=== PATIENT | female | born 1965 | race Caucasian/White ===

== ENCOUNTER 2025-02-18 12:12 | Observation (INO) | payer OTHER, SELFPAY ==
[2025-02-18] VITALS (28 sets, daily range): BP systolic 96–128; BP diastolic 64–91; PULSE 67–176; RESP 13–27; TEMP 36.4–36.6; O2SAT 98–100; BMI 25.7
--- NOTE | ~2025-02-18 | XR_ITS ---
EXAMINATION: XR chest 1V portable 02/18/2025 12:52 INDICATION: Atrial fibrillation PROCEDURE: AP portable chest COMPARISON: No prior studies for comparison. FINDINGS: The lungs are clear. The cardiomediastinal silhouette is within normal limits. There are no pleural effusions. There is no pneumothorax suspected. IMPRESSION: 1: NO ACUTE CARDIOPULMONARY DISEASE. Reviewed, dictated and finalized at location A.
--- NOTE | 2025-02-18 12:17 | ECG_ITS ---
Test Date: 2025-02-18 12:20:11 Measurements Intervals [place] Rate: 163 P: 0 VA: 0 QRS: -50 QRSD: 97 T: 115 QT: 272 QTc: 449 Interpretive Statements ATRIAL FIBRILLATION WITH RAPID VENTRICULAR RESPONSE INTRAVENTRICULAR CONDUCTION DELAY CANNOT RULE OUT PREVIOUS INFERIOR INFARCTION ABNORMAL ECG No previous ECG available for comparison Electronically Signed On 02-19-2025 08:03:03 CDT by Case Cintron M.D.
[2025-02-18] MEDS: LACTATED RINGERS 1,000 ML 999 ML IV CONT (12:32)
[2025-02-18] MEDS: dilTIAZem 100 MG/100 ML 100 MG/100 ML BAG IV CONT (12:32)
[2025-02-18 12:33] LABS: Hematocrit 39.5 % (37.0-47.0); Hemoglobin 12.7 g/dL (12.0-15.0); Immature Granulocyte Percent A 0.3 % (0-0.5); Lymphocytes Absolute Auto 1.31 K/mm3 (0.9-3.2); Mean Corpuscular HGB Conc 32.2 g/dl (32-36); Mean Corpuscular Hemoglobin 27.3 pg (26-34); Mean Corpuscular Volume 84.9 fl (80-100); Nucleated Red Blood Cells Absolute Auto 0.000 K/mm3 (0.0-0.012); Nucleated Red Blood Cells Perc 0.0 % (0.0-0.2); Platelet Count Result 175 k/mm3 (150-375); Red Blood Count 4.65 M/mm3 (4.2-5.4); White Blood Count 6.9 K/mm3 (4.5-10.0)
--- NOTE | 2025-02-18 12:34 | ED.ARRPALP ---
HPI - Arrhythmia/Palpitations General Chief Complaint: Arrhythmia/Palpitations Stated Complaint: DIZZY Time Seen by Provider: 02/18/25 12:23 History of Present Illness HPI narrative: 59-year-old female with history of paroxysmal AFib on Xarelto. Patient also has history of type 2 diabetes, factor 5 Leiden disease with frequent DVTs. Patient states her last episode of AFib was December 2023. Patient was cardioverted at that time. Patient does not take Cardizem or metoprolol. Patient states that approximately 10 30 today she had onset of rapid heart rate. Patient denies any associated chest pain with this. Related Data Home Medications ?Medication ?Instructions ?Recorded ?Confirmed ?Last Taken ?Type Bacillus coagulans 250 million 1 tablet PO ONCE 02/18/25 02/18/25 02/17/25 History cell chewable tablet (Digestive Advantage Probiotic Gummy) Bacillus coagulans-inulin 1 1 cap PO DAILY 02/18/25 02/18/25 02/17/25 History billion cell-250 mg capsule (Probiotic with Prebiotic) celecoxib 200 mg capsule 200 mg PO Q12H 02/18/25 02/18/25 02/17/25 History cholecalciferol (vitamin D3) 75 3,000 unit PO DAILY 02/18/25 02/18/25 02/17/25 History mcg (3,000 unit) tablet estradiol 0.025 mg/24 hr weekly 1 patch transdermal WEEKLY 02/18/25 02/18/25 02/05/25 History transdermal patch ezetimibe 10 mg-simvastatin 40 mg 1 tablet PO QPM 02/18/25 02/18/25 02/17/25 History tablet ferrous sulfate 325 mg (65 mg 325 mg PO DAILY 02/18/25 02/18/25 02/18/25 History iron) tablet (Feosol) fluconazole 150 mg tablet 150 mg PO PRN 02/18/25 02/18/25 Unknown History insulin glargine 100 unit/mL (3 17 unit subcut QPM 02/18/25 02/18/25 02/17/25 History mL) subcutaneous pen (Lantus Solostar U-100 Insulin) insulin lispro-aabc 100 unit/mL 1 sliding scale dose subcut .with 02/18/25 02/18/25 02/18/25 History subcutaneous pen (Lyumjev KwikPen meals U-100 Insulin) metformin 500 mg tablet 1,000 mg PO BID 02/18/25 02/18/25 02/18/25 History multivitamin with minerals 1 tablet PO DAILY 02/18/25 02/18/25 02/17/25 History (Hair,Skin and Nails tablet) omega 4-cfg-jew-fish oil 1,000 mg 1 cap PO BID 02/18/25 02/18/25 02/18/25 History (120 mg-180 mg) capsule (Fish Oil) progesterone micronized 100 mg 100 mg PO QPM 02/18/25 02/18/25 02/17/25 History capsule (Prometrium) rivaroxaban 20 mg tablet (Xarelto) 20 mg PO Q24H 02/18/25 02/18/25 02/17/25 History tirzepatide 12.5 mg/0.5 mL 12.5 mg subcut WEEKLY 02/18/25 02/18/25 02/05/25 History subcutaneous pen injector (Mounjaro) zolpidem 10 mg tablet 10 mg PO QHS 02/18/25 02/18/25 02/17/25 History Allergies Allergy/AdvReac Type Severity Reaction Status Date / Time No Known Allergies Allergy Verified 02/18/25 15:18 Review of Systems Review of Systems: All systems reviewed & are unremarkable except as noted in HPI and below PMFSH Past Medical History Medical History Diabetes DVT (deep vein thrombosis) in Factor 5 Leiden mutation, heterozygous Paroxysmal A-fib Family History Family History (Updated 02/18/25 @ 15:29 by Leisa Hooker RN) Mother COPD (chronic obstructive pulmonary disease) Father Obesity Social History Social History Smoking status: Never smoker Second hand tobacco smoke exposure: No Alcohol intake: never Substance use: never Do You Feel Safe in your Home?: Yes Lack of Transportation: No Lack of Food: Never True Current Housing: I Have Housing Concerned About Future Housing: No Difficulty Paying Gas/Electric Bills: No Difficulty Paying for Meds: No Currently Unemployed: No Education: Associate Degree Difficulty w/ Childcare or Family Care: No Spiritual care concerns: No Exam Narrative: APPEARANCE: Well appearing, no pain, no distress, well-nourished. HEAD: normocephalic, atraumatic. EYES: PERRLA/EOMI, conjunctivae clear. NOSE: Normal no drainage EARS:TMS clear with good light reflex. THROAT: Pharynx clear, no exudate. NECK: Supple. No adenopathy, no masses. RESPIRATORY: Airway patent, respirations nonlabored. Clear to auscultation bilaterally, no rales, rhonchi, wheezing. CARDIOVASCULAR: AFib with RVR ABDOMINAL: Soft, nontender, nondistended, normal bowel sounds MUSCULOSKELETAL: Moves all extremities. Strength/ROM intact, No edema, No calf tenderness. NEURO: Alert. Cranial nerves II through XII intact. Grossly intact SKIN: Warm, dry. Normal Color Course Vital Signs Vital signs: Vital Signs Temperature 97.6 F 02/18/25 12:07 Pulse Rate 175 H 02/18/25 12:07 Respiratory Rate 16 02/18/25 12:07 Blood Pressure 118/75 02/18/25 12:07 Pulse Oximetry 100 02/18/25 12:07 Temperature 97.9 F 02/18/25 16:00 Pulse Rate 79 02/18/25 18:00 Respiratory Rate 20 02/18/25 16:00 Blood Pressure 112/72 02/18/25 16:00 Pulse Oximetry 98 02/18/25 16:00 Oxygen Delivery Room Air 02/18/25 16:00 MDM - Arrhythmia/Palpitations MDM Narrative Medical decision making narrative: 59-year-old female present to the emergency department for evaluation for AFib with RVR. Patient is currently afebrile with no leukocytosis hemoglobin of 12.7. INR is 1.1. Patient has no significant acute abnormalities on her CMP but patient does have a low magnesium of 1.4. Patient's troponin is not elevated. Patient's proBNP was elevated at 354. Patient was started on initial Cardizem bolus of 10 mg and a 2nd bolus of 15 mg. Patient was also started on a Cardizem infusion. Patient's magnesium was low and this was treated with a infusion of 2 g magnesium. Case was discussed with hospitalist patient was accepted for admission to IMU. Differential Diagnosis Differential diagnosis: Likely palpitations, artial fibrillation, artial flutter and WPW Lab Data Attestation: I reviewed the patient's lab results. 02/18/25 12:27 02/18/25 12:27 Labs: Lab Results 02/18/25 Range/Units 12:27 WBC 6.9 (4.5-10.0) K/mm3 RBC 4.65 (4.2-5.4) M/mm3 Hgb 12.7 (12.0-15.0) g/dL Hct 39.5 (37.0-47.0) % MCV 84.9 (80-100) fl MCH 27.3 (26-34) pg MCHC 32.2 (32-36) g/dl RDW 13.1 (11.5-14.5) % Plt Count 175 (150-375) k/mm3 MPV 10.2 (7.4-10.4) fl Immature Gran % (Auto) 0.3 (0-0.5) % Neut % (Auto) 70.8 (45.5-73.1) % Lymph % (Auto) 19.1 (18.3-44.2) % [place] % (Auto) 7.2 (2.6-8.5) % Eos % (Auto) 2.0 (0-4.4) % Baso % (Auto) 0.6 (0.2-1.2) % Lymph # (Auto) 1.31 (0.9-3.2) K/mm3 [place] # (Auto) 0.5 (0.1-0.6) K/mm3 Eos # (Auto) 0.1 (0-0.3) K/mm3 Baso # (Auto) 0.0 (0.0-0.1) K/mm3 Abs Immat Gran (auto) 0.02 (0.00-0.031) K/mm3 Absolute Neuts (auto) 4.9 (1.3-6.7) K/mm3 Absolute Nucleated RBC 0.000 (0.0-0.012) K/mm3 Nucleated RBC % 0.0 (0.0-0.2) % PT 14.0 (11.1-14.7) Seconds INR 1.1 APTT 26.8 (22.3-36.8) Seconds Sodium 137 (137-145) mmol/L Potassium 3.5 (3.4-5.0) mmol/L Chloride 102 (98-107) mmol/L Carbon Dioxide 23 (22-30) mmol/L Anion Gap 12 (4-12) mmol/L BUN 10 (7-17) mg/dL Creatinine 0.42 L (0.7-1.0) mg/dL Estim Creat Clear Calc 113 ml/min Estimated GFR > 60 (59 - ) Glucose 219 H (65-110) mg/dL Calcium 9.3 (8.4-10.2) mg/dL Magnesium 1.4 L (1.6-2.3) mg/dL Total Bilirubin 0.9 (0.2-1.3) mg/dL AST 26 (14-36) U/L ALT 16 (6-35) U/L Alkaline Phosphatase 72 (38-126) U/L Troponin I < 0.012 (0.000-0.034) ng/mL NT-Pro-B Natriuret Pep 354 H (19.9-100) pg/mL Total Protein 6.9 (6.3-8.2) g/dL Albumin 4.2 (3.5-5.1) g/dL TSH (Reflex) 0.266 L (0.465-4.68) uIU/mL Free T4 1.79 (0.78-2.19) ng/dL Total T3 0.90 (0.82-1.58) NG/ML Imaging Data Radiologist's impression: Impressions Chest X-Ray 02/18/25 12:57 IMPRESSION: 1: NO ACUTE CARDIOPULMONARY DISEASE. ECG Data EKG #1: EKG Interpretation: tachycardia, atrial fibrillation, non-specific ST changes, normal QRS, normal QT and NL axis Discharge Plan Discharge Clinical Impression: Atrial fibrillation with rapid ventricular response, Hypomagnesemia Patient Disposition: Still a Patient Condition: Serious
--- OUTSIDE RECORDS SUMMARY | 2025-02-18 12:46 | XMS_ITS ---
Author Organization [facility] Billing Info Address [address] [place] [address] Care Team Providers Care Produce Sorter Name Role Phone [place] LEMUS Primary Care Provider Unavailab JESSY Al Unavailable [phone] REASON FOR VISIT Annual Follow Up Encounters Encounter Location Date Provider Diagnosis [id number] [address] [place], [place] [id number] 02/07/2025 JESSY PENALOZA Coronary artery disease involving [place] coronary artery of [place] heart, unspecified whether angina present I25.10 Assessments Encounter Date Diagnosis (ICD Code) Assessment Notes Treatment Notes Treatment Clinical Notes Section Notes 02/07/2025 Coronary artery disease involving [place] coronary artery of [place] heart, unspecified whether angina present (ICD-10 - I25.10) 02/07/2025 Other [facility] : Care Instructions material was published Plan Of Treatment Treatment Notes Assessment Notes Other [facility]: Car e Instructions material was published Next Appt Details Provider Name:KY WANG, 02/21/2025 01:30:00 PM, [address], [place], [phone], Provider Name:JESSY PENALOZA, 03/20/2025 08:15:00 AM, [address], [address], [place], [place], [phone], Progress Notes * Carolynn CHAVEZ LDOB:1965 (59 yo F)Acc No.[id number]:02/07/2025 PROGRESS NOTE Patient: Carolynn SCHOFIELD Provider: Tesha PENALOZA MD :1965 A ge:59 Y S ex:Female Date:02/07/2025 Pearl AGUILAR#:[id number] Address:[address] [place] [address] ELIEL BROWNLEE, [phone] Pcp:KY LEMUS Subjective: * Chief Complaints: * 1 . Annual Follow Up. * HPI: F irst Point of Contact Screening: Do any of the following apply to you? N ew rash or open sores N o, F ever and/or chills in the past 7 days N o, C ough N o, M uscle or body aches (other than from an injury) N o, S ore throat N o, I n the past 3 weeks, have you or a close contact traveled outside the [facility] and you are now ill? N o, O FFICE USE (If universal masking is not in place, provide patients age 2 years and older with a facemask to wear over their mouth and nose while in the practice.): P atient answered no to all questions OR only answered yes to question 1, N o further action needed 0 02/07/2025. * Medical History: Objective: * Vitals: Assessment: * Assessment: 1. C oronary artery disease involving [place] coronary artery of [place] heart, unspecified whether angina present - I25.10 (Primary) Plan: * Treatment: * Care Plan Details* * This progress note has not b een verified nor is it considered complete until locked and signed by the provider. Sign off status: Pending * Provider: Tesha PENALOZA MD Date: 0 02/07/2025 Generated for Afua banegas/Robbie/Gómezitting on: 0 02/18/2025 12:46 PM CDT History and Physical Notes * HPI (History of Present Illness) Category Sub-Category Detail Notes Category Not es First Point of Contact Screening Do any of the following apply to you? New rash or open sores: No Fever and/or chills in the past 7 days: No Cough: No Muscle or body aches (other than from an injury): No Sore throat: No In the past 3 weeks, have yo u or a close contact traveled outside the [place] and you are now ill? : No OFFICE USE (If universal mas radha is not in place, provide patients age 2 years and older with a facemask to wear over their mouth and nose while in the practice.):: Patient answered no to all questions OR only answered yes to question 1 No further action needed : 02/07/2025
--- OUTSIDE RECORDS SUMMARY | 2025-02-18 12:47 | XMS_ITS ---
Author Organization [facility] Address [address] [address] Care Team Providers Care Munitions Worker Name Role Phone Cayetano Ramesh Primary Care Provider [phone] REASON FOR VISIT PA Ambien 10 mg-*No PA reqd* Medications Medication SIG (Take, Route, Fr equency, Duration) Notes Start Date End Date Status Zolpidem Tartrate 10 MG 1/2 to 1 tablet at bedtime as needed Orally Once a day for 90 days 08/31/2024 Active Encounters Encounter Location Date Provider Diagnosis [facility] [address] [place] [phone] 08/29/2024 Cayetano Ramesh Plan Of Treatment Medication Medication Name Sig Start Date Stop Date Notes Zolpidem Tartrate 10 MG 1/2 to 1 tablet at bedtime as needed Orally Once a day for 90 days 08/31/2024 Next Appt Details Provider Name:Cayetano Ryder off, 02/21/2025 01:30:00 PM, [address] [place] [address], [phone], Progress Notes * Carolynn CHAVEZ LDOB:1965 (59 yo F)Acc No.[id number]:08/29/2024 Patient: Carolynn SCHOFIELD :1965 A ge:59 Y S ex:Female Address:[address] [place] [address], [phone] * Refills Start Zolpidem Tartrate Tablet, 10 MG, Orally, 90, 1/2 to 1 tablet at bedtime as needed, Once a day, 90 days, Refills=1 Subjective: * Chief Complaints: * P A Ambien 10 mg-*No PA reqd* * Medical History: * Surgical History: * Hospitalization/Major Diagno stic Procedure: * Medications: Objective: * Vitals: * Physical Examination: Assessment: Plan: * Treatment: * Procedure Codes: * true * Date: Generated for Afua banegas/Robbie/Hanane on: 0 02/18/2025 12:46 PM CDT
--- OUTSIDE RECORDS SUMMARY | 2025-02-18 12:47 | XMS_ITS ---
Author Organization [facility] Billing Info Address [address] [place] [address] Care Team Providers Care Product Development Actuary Name Role Phone [place] LEMUS Primary Care Provider Unavailab JESSY Al [phone] REASON FOR VISIT Cardiology Chart Prep Encounters Encounter Location Date Provider Diagnosis [id number] [address] [address] [place], [place] [phone] 01/19/2025 JESSY PENALOZA Plan Of Treatment Next Appt Details Provider Name:KY WANG, 02/21/2025 01:30:00 PM, [address] [place], [phone], Provider Name:JESSY PENALOZA, 03/20/2025 08:15:00 AM, [address] [address], [place], [place], [phone], Progress Notes * Carolynn CHAVEZ LDOB:1965 (59 yo F)Acc No.[id number]:01/19/2025 Patient: Carolynn SCHOFIELD :1965 A ge:59 Y S ex:Female Address:[address] [place] [phone] * true * Date: Generated for Printi ng/Faxing/eTransmitting on: 0 02/18/2025 12:47 PM CDT
--- OUTSIDE RECORDS SUMMARY | 2025-02-18 12:47 | XMS_ITS ---
Author Organization [facility] Address [address] [address] Care Team Providers Care Licensed Customs Broker Name Role Phone Cayetano Ramesh Primary Care Provider REASON FOR VISIT RE:New Refill Request Encounters Encounter Location Date Provider Diagnosis [facility] [address] [place] [phone] 08/28/2024 Cayetano Ramesh Plan Of Treatment Next Appt Details Provider Name:Cayetano Ryder off, 02/21/2025 01:30:00 PM, [address] [place] [address], [phone], Progress Notes * Carolynn CHAVEZ LDOB:1965 (59 yo F)Acc No.[id number]:08/28/2024 Patient: Carolynn SCHOFIELD :1965 A ge:59 Y S ex:Female Address:[address] [place] [address], [phone] * true * Date: Generated for Printi ng/Faxing/eTransmitting on: 0 02/18/2025 12:46 PM CDT
--- OUTSIDE RECORDS SUMMARY | 2025-02-18 12:48 | XMS_ITS | Patient Health Record ---
Author Organization [facility] Billing Info Address [address] [place] [address] Care Team Providers Care Heat Treat Operator Name Role Phone [place] LEMUS Primary Care Provider Unavailab [place] Wong Unavailable [phone] JESSY STEELE Unavailable [phone] TATUM ACOSTA Unavailable [phone] Migration, Provider Unavailable Unavailable Allergies No Known Allergies Results Component Value Reference Range Notes EKG (96989) (MidMark-MMIQECG ) IH Reviewed date:05/05/2024 10:22:59 PM Interpretation: Performing Lab: Notes/Report: Heart Rate 74 Systolic Blood Pressure 0 Diastolic Blood Pressure 0 TX Interval 160 QT Interval 422 QTc Interval 0 QRS Duration 104 PWave [place] 57 QrsWave [place] -41 TWave [place] 90 Mean Heart Rate 0 Diastolic Blood Pressure 0 Systolic Blood Pressure 0 MeanRR Interval 0 MinRR Interval 0 MaxRR Interval 0 NumBeats 0 Reason For Referral No Information Medications Medication SIG (Take, Route, Frequency, Duration) Notes Start Date End Date Status Climara 0.025 MG/24HR 1 patch to skin Transdermal weekly for 90 days 04/25/2016 Active Lyumjev KwikPen 100 UNIT/ML as directed Subcutaneous 1 Unit per 4 G Carbs Sliding Active Celebrex 200 MG 1 capsule Orally Onc e a day for 90 days 04/26/2012 Active Lantus SoloStar 100 UNIT/ML 22 units Subcutaneous every qhs 17 units at night Active Prometrium 100 MG 1 capsule Orally Onc e a day for 90 days 03/27/2016 Active Probiotic OTC as directed Orally a s directed for 90 days *Pick strength-form from Talkito for eRX* Active Ambien 10 MG 1 tab Orally qHS for 90 days 08/15/2024 Active Vascepa 1 GM 2 capsules with meal s Orally Twice a day for 90 days 01/05/2024 Active Mounjaro 15 mg wkly *Pick strength-form from Talkito for eRX* Active Metformin HCl 500 MG 2 tablets with meal s Orally Twice a day for 30 day(s) Active Vytorin 10-40 MG 1 tablet Orally Once a day for 90 days 04/02/2012 Active Medical Compression Stockings 30-40 knee high as directed 10/17/2015 Active Xarelto 20 MG 1 tablet WITH FOOD Orally Once a day for 90 days 05/13/2024 Active Iron 325 (65 Fe) MG 1 tablet Orally Once a day Active Vitamin D3 2000 UNIT as directed Orally as directed for 90 days *Pick strength-form from [employer]ito for eRX* Active Immunizations Vaccine Route Administration Date Status Comme nts FLU (Past vaccine of unknown type) Unknown 05/31/2010 Administered Immunization Given by from source eCW:: FLU (Past vaccine of unknown type) Unknown 07/01/2011 Administered Immunization Given by from source eCW:: PNEUMOCOCCAL - 23 POLY (PNEUMOVAX 23) IM Intramuscular 04/20/2018 Pending Immunization Given by from source eCW:: PNEUMOCOCCAL 13 CONJ (XOGVEIT22) IM Intramuscular 06/13/2020 Administered TD Toxoids (7 yrs +), adsorbed (TDVAX) IM Intramuscular 01/14/2022 Administered TDAP (ADACEL) Unknown 11/03/2006 Administered Immunizat ion Given by from source eCW:: zCOVID-19 (Pfizer-BioNTech Purple Cap Comirnaty) 12+yrs, NO PRES Unknown 10/31/2020 Administered Immunization Given by from source eCW:: zCOVID-19 (MakerBotNTech Purple Cap Comirnaty) 12+yrs, NO PRES Unknown 11/28/2020 Administered Immunization Given by from source eCW:: zCOVID-19 ([employer]-CRAZEech Purple Cap Comirnaty) 12+yrs, NO PRES Unknown 08/11/2021 Administered Immunization Given by from source eCW:: zFLU 4V (FLUARIX QUAD), 6 MO+, NO PRES - ALL PAYORS IM Intramuscular 05/05/2023 Administered ZOSTER (SHINGRIX) IM Intramuscular 01/14/2022 Administered ZOSTER (SHINGRIX) IM Intramuscular 07/07/2023 Administered Dilutent Lot #: [id number] Exp Date: 07/08/25 Social History Tobacco Use: Social History Observation Description Date Details (start date - stop date) Never Smoker NA - NA Tobacco Status: Question Answer Notes Patient is a never smoker Problems Problem Type SNOMED Code ICD Code Onset Dates Problem Status W/U Status Risk Notes Problem 106358832 Activated 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) Active confirmed Problem 26583933 Type 2 diabetes mellitus with hyperglycemia (E11.65) Active confirmed Problem 408207875 Other obesity (E66.8) Active confirme d Problem Long-term current use of anticoagulant (345020799) senior care (current) use of anticoagulants (Z79.01) Active confirmed Problem 671363340 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) Active confirmed Problem 371314686 Low back pain (M54.5) Active confirme d Problem 199025365 Hx of deep venou s thrombosis (Z86.718) Active confirmed Problem 01262050 PVCs (premature ventricular contractions) (I49.3) Active confirmed Problem 38418208 DARY (obstructive sleep apnea) (G47.33) Active confirmed Problem 98351012 Cardiac murmur (R01.1) Active confirme d Problem 97585363 Sacroiliitis (M46.1) Active confirmed Problem 50608284 Menopausal sympt oms (N95.1) Active confirmed Problem 293099453 Abnormal ECG (R94.31) Active confirme d Problem 254086544828055 Impingement synd parmjit of right shoulder (M75.41) Active confirmed Problem 42132318 Aortic valve scl erosis (I35.8) Active confirmed Problem 173124690 Chronic insomnia (F51.04) Active confirmed Problem 82075843 Spondylosis of l umbar region without myelopathy or radiculopathy (M47.816) Active confirmed Problem 574933318 senior care curren t use of anticoagulant (Z79.01) Active confirmed Problem 071811200 Factor V Leiden mutation (D68.51) Active confirmed Problem 02654653 Primary hypercoagulable state (D68.59) Active confirmed Problem 25613403 Atrial fibrillat ion, unspecified type (I48.91) Active confirmed Problem 108693873 Syncope, unspeci fied syncope type (R55) Active confirmed Problem 91686129 Coronary artery disease involving northway heart without angina pectoris, unspecified vessel or lesion type (I25.10) Active confirmed Problem 534964660 Nonrheumatic aor tic valve stenosis (I35.0) Active confirmed Problem 883364648 Osteoarthritis o f patellofemoral joints, 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) Active confirmed Problem 808716780 Pure hypercholesterolemia (E78.00) Active confirmed Problem 390987456 Pure hypercholesterolemia, unspecified (E78.00) Active confirmed Problem 512620551 S/P rotator cuff repair (Z98.890) Active confirmed Problem 65530219114357 LAE (left atrial enlargement) (I51.7) Active confirmed Problem 546293576 Coronary artery disease involving northway coronary artery of northway heart, unspecified whether angina present (I25.10) Active confirmed Vital Signs Heart Rate 72 /min 08/30/2024 Waist 38 inches on 08/30/24 Respiratory Rate 16 /min 08/30/2024 Waist 38 in ches on 08/30/24 Oximetry 98 08/30/2024 Waist 38 inches on 08/30/24 Blood pressure diastolic 64 mm Hg 08/30/[address] 38 inches on 08/30/24 Height 67 in 08/30/2024 Waist 38 inches on 08/30/24 Blood pressure systolic 110 mm Hg 08/30/2024 Wais t 38 inches on 08/30/24 Weight 168.2 lbs 08/30/2024 Waist 38 inches on 08/30/24 BMI 26.34 kg/m2 08/30/2024 Waist 38 inches on 08/30/24 Encounters Encounter Location Date Provider Diagnosis [id number] [address] [place] [address] 05/02/2024 TATUM ACOSTA [id number] [facility] [address] [place], [place] [id number] 05/25/2024 JESSY STEELE [id number] [place] [address] [place] [address] 08/15/2024 [place] LEMUS Chronic insomnia F51 .04 [id number] [place] [address] [address] 02/24/2024 [place] LEMUS [id number] [place] [facility] [address] [facility] [address] 08/28/2024 [place] LEMUS [id number] [place] [address] [facility] [address] 02/26/2024 [place] LEMUS [id number] [place] [facility] [address] [facility] [address] 08/29/2024 KY LEMUS [id number] [place] [facility] [address] [place] [address] 02/22/2024 [place] LEMUS [id number] [place] [address] [address] 02/26/2024 [place] LEMUS [id number] [facility] [address] [place] [address] 2024 Provider Migration 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 Z79.01 [id number] [facility] [address] [address] [place], [place] [id number] 01/19/2025 JESSY YANG [id number] [facility] [id number] [place] [address] 05/04/2024 Provider Migration 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 Z79.01 ; History of DVT of lower extremity Z86.718 and Factor V Leiden mutation D68.51 [id number] [facility] [address] [place] [address] 04/13/2024 Provider Migration 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 Z79.01 ; History of DVT of lower extremity Z86.718 and Factor V Leiden mutation D68.51 [id number] [facility] [address] [place] [address] 2024 Provider Migration 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 Z79.01 ; History of DVT of lower extremity Z86.718 and Factor V Leiden mutation D68.51 [id number] [address] [place] [address] 08/30/2024 KY LEMUS Chronic insomnia F51 .04 ; Encounter for general adult medical examination with abnormal findings Z00.01 ; Body mass index (BMI) of 26.0 to 26.9 in adult Z68.26 ; Dietary counseling and surveillance Z71.3 ; Atrial fibrillation, unspecified type I48.91 ; Asymptomatic varicose veins I83.90 ; Chronic anticoagulation Z79.01 and Screening mammogram for breast cancer Z12.31 [id number] [facility] [address] [place] [address] 05/04/2024 TATUM ACOSTA Paroxysmal atrial fibrillation I48.0 and Heterozygous factor V Leiden mutation D68.51 Assessments Encounter Date Diagnosis (ICD Code) Assessment Notes Treatment Notes Treatment Clinical Notes Section Notes 05/04/2024 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 Will increase her TWD to 48mg. Will continue monitoring for INR stability w/ her continued WEIGHT LOSS (she has lost 80 lbs from starting weight of 247 lbs in 09/2022). Advised patient to notify [facility] clinic if any further changes prior to next visit. We have discussed if she decides to proceed w/ the KNEE MANIPULATION procedure that it likely would not require interruption of her anticoagulation as this is typically a closed procedure without any bleeding risk, however if she decides to proceed with scheduling this then we would contact Dr. Oneil to verify this, so she v/u to notify [facility] if she schedules this procedure prior to next visit. 08/30/2024 Chronic insomnia (ICD-10 - F51.04) 08/30/2024 Encounter for general adult medical examination with abnormal findings (ICD-10 - Z00.01) 04/13/2024 senior care (current) use of anticoagulants (ICD-10 - Z79.01) Therapeutic INR result today, in mid-range & remains very stable from last several INRs on current dosing. She will continue her current therapeutic TWD 45mg. Will continue monitoring for INR stability w/ her continued WEIGHT LOSS (she has lost 80 lbs from starting weight of 247 lbs in 09/2022). Advised patient to notify [facility] clinic if any further changes prior to next visit. We have discussed if she decides to proceed w/ the KNEE MANIPULATION procedure that it likely would not require interruption of her anticoagulation as this is typically a closed procedure without any bleeding risk, however if she decides to proceed with scheduling this then we would contact Dr. Oneil to verify this, so she v/u to notify [facility] if she schedules this procedure prior to next visit. 2024 senior care (current) use of anticoagulants (ICD-10 - Z79.01) 05/04/2024 Paroxysmal atrial fibrillation (ICD-10 - I48.0) Patient had one episode of atrial fibrillation. No recurrence of arrhythmia, to her knowledge. We discussed various treatment options including watchful waiting while monitoring arrhythmia burden with an implantable loop recorder, a rate control strategy and a rhythm control strategy with either a trial of antiarrhythmic drug therapy, and/or catheter ablation. We reviewed the risks and benefits of each of these treatment strategies. At this time, she would like to hold off on pursuing any additional treatment options and continue with the pill in the pocket approach, as she is doing currently. She was advised to contact our office if she has any worrisome symptoms that occur at a greater duration or intensity. I would like to see her back in my office for a follow-up as needed. - Follow-up as needed - Continue to follow with Dr. 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 Recommend continued close monitoring for INR stability w/ her continued WEIGHT LOSS (she has lost 80 lbs from starting weight of 247 lbs in 09/2022). Discussed [facility] clinic closing 05/13/24 & transition of her anticoagulation care to PCP now. She is due for next INR in approx 2-3 weeks to assess response to this additional dosing adjustment as per above. She is to remain on long-term anticoagulation tx due to her diagnoses, and reminded her that she is on anticoagulation now for TWO different reasons as well with (1) hx recurrent DVT & hypercoag state, and (2) new onset A-fib earlier this year, so if someone is ever to advise her she could stop anticoagulation tx, this should NOT be done & BOTH of these diagnoses need to be taken into consideration. We also discussed she is a candidate for a DOAC if she would desire to change from Warfarin to a DOAC, so she will check the cost of both Eliquis & Xarelto with her insurance & notify [facility] if these are affordable to her since she has & could not use the reduced cost copay card programs. If she finds the DOACs to be affordable then she will contact [facility] prior to 05/13 closing so we can assist with prescribing & educating on the DOAC medication & safe transition process from Warfarin. It has been my pleasure providing care for Carolynn for many years in [facility]. We have discussed if she decides to proceed w/ the KNEE MANIPULATION procedure in the future that it likely would NOT require interruption of her anticoagulation as this is typically a closed procedure without any bleeding risk, however if she decides to proceed with scheduling this then Dr. Oneil should be contacted to verify this. 2024 History of DVT of lower extremity (ICD-10 - Z86.718) 05/04/2024 Heterozygous factor V Leiden mutation (ICD-10 - D68.51) She is on lifelong Warfarin anticoagulation due to her coagulopathy, with recent INR reportedly 2.5. 05/04/2024 History of DVT of lower extremity (ICD-10 - Z86.718) 04/13/2024 History of DVT of lower extremity (ICD-10 - Z86.718) 08/30/2024 Body mass index (BMI) of 26.0 to 26.9 in adult (ICD-10 - Z68.26) 05/04/2024 Factor V Leiden mutation (ICD-10 - D68.51) 08/30/2024 Dietary counseling and surveillance (ICD-10 - Z71.3) 04/13/2024 Factor V Leiden mutation (ICD-10 - D68.51) 2024 Factor V Leiden mutation (ICD-10 - D68.51) 08/30/2024 Atrial fibrillation, unspecified type (ICD-10 - I48.91) 08/30/2024 Asymptomatic varicose veins (ICD-10 - I83.90) 08/30/2024 Chronic anticoagulation (ICD-10 - Z79.01) 08/30/2024 Screening mammogram for breast cancer (ICD-10 - Z12.31) 04/13/2024 Other Consistent Vitamin K Diet: Care Instructions material was published 05/04/2024 Other On Warfarin for 05/04/2024 Other Consistent Vitamin K Diet: Care Instructions material was published 2024 Other Consistent Vitamin K Diet: Care Instructions material was published 02/07/2025 Other A Healthy Heart : Care Instructions material was published Plan Of Treatment Pending Test Test Name Order Date ECHO- ECHOCARDIOGRAM COMPLETE (36695)(OP RM-ECHOCOM) 06/02/2023 CARDIAC CCTA - CALCIUM SCORING ONLY (740 74) CV* 08/06/2021 HOLTER MONITOR - 24 HOUR (17811) CV* Future Test Test Name Order Date ECHO- ECHOCARDIOGRAM COMPLETE (23941)(OP RM-ECHOCOM) 01/02/2025 Next Appt Details Provider Name:KY WANG, 02/21/2025 01:30:00 PM, [address], [place], [address], Provider Name:JESSY STEELE, 03/20/2025 08:15:00 AM, [address], [address], [place], [place], [id number], Insurance Providers Payer Name Payer Address Payer Phone Subscriber Number Group Number Insured Name Patient Relationship to Insured Coverage Start Date Coverage End Date [facility] [address] [place], [place] [id number] Carolynn Chavez Self - patient is the insured 2 2 Medications Administered Medication Instructions Date of Administration Dosage Notes Bupivacaine HCL 0.5% (Marcaine, Sensorcaine) 03/02/2020 3 mL Triamcinolone Acetonide (Kenalog) 03/17/2017 4 mg Right shoulder Triamcinolone Acetonide (Kenalog) 11/11/2018 4 mL zKenalog 40mg 03/02/2020 1 mL Medical (General) History Medical History History ICD Code Hyperlipidemia type II diabetes Deep vein thrombosis, left leg Neuropathy associated with endocrine dis order Heterozygous factor V leiden senior care current use of anticoagulant Primary hypercoagulable state Arthritis of left knee Atrial fibrillation Surgical History Surgery Date(Month/Year) Right total knee replacement 09/28/2023 Left wrist surgery - Tendonitis 11/21/19 21 Bilateral L3/4, L4/5, L5/S1 facets joint Right Sacroiliac Joint, Left Gluteus Bursa injections performed 04/18/2020 R Rotator Cuff Repair 07/12/2018 bilateral L3/4, L4/5, L5/S1 facet, Bilateral Sacroiliac Joint, Bilateral Gluteus Bursa injections preformed 07/12/2018 lap banding 12/2006 tubal ligation 01/2002 C section 01/2001 tonsillectomy 1968 gall bladder surgery 1987 Left wrist surgery - Tendonitis 1 Bilateral L3/4, L4/5, L5/S1 facet, Bilateral Sacroiliac Joint, Bilateral Gluteus Bursa injections performed by Dr. Sood 09/21/2017 colonoscopy, [facility], Dr. Trejo, hemorr hoids, rpt 10 years 03/2016 C section 01/2001 Bilateral L3/4, L4/5, L5/S1 facets joint, Right Sacroiliac Joint, Left Gluteus Bursa injections performed by [facility] Sood [facility] 04/18/2020 gall bladder 1987 Lap band 12/2006 Right TKA 09/2023 R Rotator Cuff 07/12/2018 tubal ligation 01/2002 Hospitalization History Reason Date(Month/Year) [facility] for Afib 12/23/2023 Low blood sugar 07/27/2021 Atrial fibrillation 12/23/2023 diabetic ketoacidosis 05/2009
--- OUTSIDE RECORDS SUMMARY | 2025-02-18 12:48 | XMS_ITS | Encounter Summary ---
Author Organization [facility] Address [address] [place] [address] Care Team Providers Care Strip Machine Tender Name Role Phone Cayetano Ramesh MD Primary Care Provider Katelyn Talamantes POLITICAL ADVISOR Unavailable [phone] Source Comments Please be aware that You and/or your organization are solely responsible for the use, security, privacy, and any decisions made with any information you receive from [employer] Encounter Details Date Type Department Care Team (Late Contact Info) Description 08/19/2023 [facility] Health Information Management [address] [place] [phone] Provider, Not In System Social History Tobacco Use Types Packs/Day Years Used Date Smoking Tobacco: Never Smokeless Tobacco: Never Alcohol Use Standard Drinks/Week Comments Yes 0 (1 standard drink = 0.6 oz pur e alcohol) Rare PHQ-2 Answer Date Recorded Patient Health Questionnaire-2 Score 0 12/17/2022 Comments Unknown Sex and Gender Information Value Date Recorded Sex Assigned at Not on file Legal Sex Female 8:12 PM EST Gender Identity Not on file Sexual Orientation Not on file documented as of this encounter Plan of Treatment Upcoming Encounters Date Type Department Care Team (Late Contact Info) Description 05/09/2025 1:30 PM CDT Office Visit [facility] Endocrinology at [facility] [address] [place] [phone] Katelyn Talamantes, POLITICAL ADVISOR [address] [address] documented as of this encounter Visit Diagnoses Not on filedocumented in this encounter Care Teams Strip Machine Tender Relationship Specialty Start [place] [address] [address] PCP - General Family Medicine 11/21/22 Katelyn Talamantes APRN [address] [facility] [address] [place] [address] Nurse Practitioner Endocrinology 11/22/24 documented as of this encounter
--- OUTSIDE RECORDS SUMMARY | 2025-02-18 12:48 | XMS_ITS | Clinical Summary ---
Author Organization [facility] Address [address] [place] [address] Care Team Providers Care Sexer Name Role Phone Jose G Maldonado MD Primary Care Provider [phone] Carina Heard RN Unavailable Unavailable Shannan Sharma MD Unavailable + -[phone] Source Comments Some departments are not documenting in the electronic medical record. If you do not see the information that you expected, contact Release of Information in the Health Information Management department at [phone] for further assistance in locating additional records.[facility] Allergies No known active allergies Medications EZETIMIBE/SIMVASTATI N (VYTORIN 10-40 PO) Take by mouth. Active ESCITALOPRAM OXALATE (LEXAPRO PO) Take by mouth. Active FENOFIBRATE NANOCRYSTALLIZED (TRICOR PO) Take by mouth. Active zolpidem (AMBIEN) 10 mg tablet Take 10 mg by mouth At Bedtime as needed for Sleep. Active enoxaparin (LOVENOX) 100 mg Syrg Inject 1 mL into area(s) as directed Twice Daily. 14 0 9 Active insulin aspart (NOVOLOG) 100 unit/mL InPn Inject 20 Units into area(s) as directed Three Times Daily With Meals. 20 pens 0 9 Active metformin (GLUCOPHAGE) 500 mg tablet Take 1 Tab by mouth Twice Daily With Meals. Take 1 tablet PO BID X 1 week then increase to 2 tabs PO BID 120 0 9 Active warfarin (COUMADIN) 10 mg tablet Take 1 Tab by mouth At Bedtime Daily. 30 0 9 Active Lancets (ONE TOUCH ULTRASOFT LANCETS) Misc Use as directed. Take blood glucose 4 time daily 120 0 9 Active Insulin Glargine (LANTUS SOLOSTAR) 300 unit/3 mL InPn Inject 36 Units into area(s) as directed Twice Daily. 10 pens 0 9 Active Insulin [place], Disposable, (BD INSULIN PEN NEEDLE UF MINI) 31 x 3/16 Ndle Use as directed. 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 Deep vein thrombosis (DVT) ([facility]) Family History Medical History Relation Comments Other Father heart disease Other Mother COPD Relation Status Comments Father Mother Social History Tobacco Use Types Packs/Day Years Used Date Smoking Tobacco: Never Alcohol Use Standard Drinks/Week Comments No 0 (1 standard drink = 0.6 oz pur e alcohol) Comments No Sex and Gender Information Value Date Recorded Sex Assigned at Not on file Legal Sex Female 6:09 PM CDT Gender Identity Not on file Sexual Orientation Not on file Occupation Industry Job Start Date Job End Date Not on file Not on file Not on file Not on file Obstetrics History Last Filed Vital Signs Vital Sign Reading Time Taken Comments Blood Pressure 115/70 05/06/2009 12:29 PM CDT Pulse 92 05/06/2009 12:29 PM CDT Temperature 35.5 C (95.9 F) 05/06/2009 12:29 PM CDT Respiratory Rate - - Oxygen Saturation 99% 05/06/2009 12: 29 PM CDT Inhaled Oxygen Concentration - - Weight 105.5 kg (232 lb 9.4 oz) 05/06/2009 3:41 AM CDT Height 175.3 cm (5' 9) 05/02/2009 7:00 AM CDT Body Mass Index 34.35 05/02/2009 7:00 AM CDT Plan of Treatment Health Maintenance Due Date Last Done Comments HIV SCREENING 1979 DTAP/TDAP VACCINES (1 - Tdap) 1982 HEPATITIS C SCREENING 1982 PHYSICAL (COMPREHENSIVE) EXAM 1982 CERVICAL CANCER SCREENING 1985 BREAST CANCER SCREENING 2004 COLORECTAL CANCER SCREENING 2009 PNEUMOCOCCAL VACCINE AGE 50 AND OVER (1 of 1 - PCV) 2014 SHINGLES RECOMBINANT VACCINE (1 of 2) 2014 COVID-19 VACCINE (1 - 2023-2 5 season) 2024 DEPRESSION SCREENING 08/03/2024 INFLUENZA VACCINE (#1) 2025 RSV VACCINE (60 years and Older/ Women) (1 - 1-dose 75+ series) 2039 HPV VACCINES Aged Out No longer eligi ble based on patient's age to complete this topic MENINGOCOCCAL B VACCINE Aged Out No l onger eligible based on patient's age to complete this topic Care Teams Sexer Relationship Specialty [place] [id number] [facility] [place] [address] PCP - General 05/01/09 Carina Heard, DA 06/03/10 Shannan Sharma MD [address] [place] [address] MS [address] [place] [address] 06/03/10
--- OUTSIDE RECORDS SUMMARY | 2025-02-18 12:48 | XMS_ITS ---
Author Organization [facility] Billing Info Address [address] [place] [id number] Care Team Providers Care Waistline Joiner Name Role Phone [place] LEMUS Primary Care Provider Unavailab [place] Wong Unavailable [phone] Allergies No Known Allergies REASON FOR VISIT Physical, ambien refill Medications Medication SIG (Take, Route, Frequency, Duration) Notes Start Date End Date Status Vascepa 1 GM 2 capsules with meals Orally Twice a day 08/30/2024 Not-Taking Climara 0.025 MG/24HR 1 patch to skin Transdermal weekly for 90 days 04/25/2016 Active Lyumjev KwikPen 100 UNIT/ML as directed Subcutaneous 1 Unit per 4 G Carbs Sliding Active Mounjaro 15 mg wkly *Pick strength-form from [employer] for eRX* Active Medical Compression Stockings 30-40 knee high as directed 10/17/2015 Active Vascepa 1 GM 2 capsules with meals Orally Twice a day for 90 days 01/05/2024 Active Xarelto 20 MG 1 tablet WITH FOOD Orally Once a day for 90 days 05/13/2024 Active Iron 325 (65 Fe) MG 1 tablet Orally Once a day Active Prometrium 100 MG 1 capsule Orally Once a day for 90 days 03/27/2016 Active Vitamin D3 2000 UNIT as directed Orally as directed for 90 days *Pick strength-form from [employer] for eRX* Active Metformin HCl 500 MG 2 tablets with meals Orally Twice a day for 30 day(s) Active Celebrex 200 MG 1 capsule Orally Once a day for 90 days 04/26/2012 Active Lantus SoloStar 100 UNIT/ML 22 units Subcutaneous every qhs 17 units at night Active Probiotic OTC as directed Orally as directed for 90 days *Pick strength-form from [employer] for eRX* Active Vytorin 10-40 MG 1 tablet Orally Once a day for 90 days 04/02/2012 Active Ambien 10 MG 1 tab Orally qHS for 90 days 08/15/2024 Active Vital Signs Respiratory Rate 16 /min 08/30/2024 Height 67 in 08/30/2024 Blood pressure systolic 110 mm Hg 08/30/19 25 Blood pressure diastolic 64 mm Hg 025 Heart Rate 72 /min 08/30/2024 Weight 168.2 lbs 08/30/2024 BMI 26.34 kg/m2 08/30/2024 Oximetry 98 08/30/2024 Waist 38 inches on 08/30/24 Encounters Encounter Location Date [id number] [address] [address] 08/30/2024 [place] LEMUS Chronic insomnia F51 .04 ; Encounter for general adult medical examination with abnormal findings Z00.01 ; Body mass index (BMI) of 26.0 to 26.9 in adult Z68.26 ; Dietary counseling and surveillance Z71.3 ; Atrial fibrillation, unspecified type I48.91 ; Asymptomatic varicose veins I83.90 ; Chronic anticoagulation Z79.01 and Screening mammogram for breast cancer Z12.31 Assessments Encounter Date Diagnosis (ICD Code) Assessment Notes Treatment Notes Treatment Clinical Notes Section Notes 08/30/2024 Chronic insomnia (ICD-10 - F51.04) 08/30/2024 Encounter for general adult medical examination with abnormal findings (ICD-10 - Z00.01) 08/30/2024 Body mass index (BMI) of 26.0 to 26.9 in adult (ICD-10 - Z68.26) 08/30/2024 Dietary counseling and surveillance (ICD-10 - Z71.3) 08/30/2024 Atrial fibrillation, unspecified type (ICD-10 - I48.91) 08/30/2024 Asymptomatic varicose veins (ICD-10 - I83.90) 08/30/2024 Chronic anticoagulation (ICD-10 - Z79.01) 08/30/2024 Screening mammogram for breast cancer (ICD-10 - Z12.31) Plan Of Treatment Medication Medication Name Sig Start Date Stop Date Notes Xarelto 20 MG 1 tablet WITH FOOD O rally Once a day for 90 days 05/13/2024 Diflucan 150 MG 1 tablet Orally q 3 wks to prevent yeast infection 12/17/2022 Next Appt Details Follow Up: 6 mo, Chronic ins omnia (lesser Ambien?), Xarelto, get body fat, Reason: Provider Name:KY WANG, 02/21/2025 01:30:00 PM, [address], [place], [address], Provider Name:JESSY PENALOZA, 03/20/2025 08:15:00 AM, [address], [address], [place], [place], [id number], Progress Notes * Carolynn CHAVEZ LDOB:1965 (59 yo F)Acc No.[id number]:08/30/2024 PROGRESS NOTES Patient: Carolynn SCHOFIELD Provider: Cristal Lemus MD :1965 A ge:59 Y S ex:Female Date:08/30/2024 Address:[address] [place], [place] [id number] Subjective: * Chief Complaints: * P hysical, ambien refill * HPI: D epression Screening: PHQ-2 (2015 Edition) L ittle interest or pleasure in doing things??Not at all F eeling down, depressed, or hopeless? N ot at all T otal Score 0 F irst Point of Contact Screening: Do any of these apply to you? (USE BEGINING 05/2022) 1 . New Rash or open sores N o 2 . Fever and/or chills in the past 7 days?No 3 . Cough N o 4 . Muscle or body aches (other than from an injury) N o 5 . Sore throat N o 6 . In the past three weeks, have you or a close contact traveled outside the [facility] and are you now ill? N o Proper hand washing used. FPOC screen negative unless otherwise noted. N ew symptom(s): Pt presents today for MALE physical. - Medical / social updates since last visit/Physical: 1 ) Losing much weight, likely from Mounjaro. Losing some strength in hands. 2) R TKA last year, doing OK, but not full ROM. Able to be much more active. 3) Afib, new onset, 12/24. Was about to have cardioversion, then self-converted. Hasn't recurred. 4) Off Jardiance now, and no yeast infections. 2. Chronic anticoag- needs me to assume Xarelto Rx with [facility]. Had been on Warfarin, but [facility] switched it last fall. Past medical/family/social history reviewed by Dr. Lemus and updated as necessary.. * ROS: R espiratory: Dyspnea d enies, denies. C ardiovascular: Chest pain d enies, denies. G astrointestinal: Constipation d enies, denies. D iarrhea d enies, denies. R ectal bleeding d enies, denies. S kin: Skin lesion(s) d enies, denies. P sychiatric: Depressed mood d enies, denies. 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 * Surgical History: g all bladder 1988tonsillectomy 1968C section 01/2001tubal ligation 01/2002Lap band 12/2006colonoscopy, Tenriism, Dr. Trejo, hemorrhoids, rpt 10 years 03/2016Bilateral L3/4, L4/5, L5/S1 facet, Bilateral Sacroiliac Joint, Bilateral Gluteus Bursa injections performed by Dr. Sood 09/21/2017R Rotator Cuff 07/12/2018Bilateral L3/4, L4/5, L5/S1 facets joint, Right Sacroiliac Joint, Left Gluteus Bursa injections performed by Dr. Sood @[facility] 04/18/2020Left wrist surgery - Tendonitis 1Right TKA 09/2023 * Hospitalization/Major Diagno stic Procedure: d iabetic ketoacidosis trial fibrillation 12/23/2023 * Family History: F ather: 71 yrs, of heart related issues at age 71, diagnosed with See Notes.?Mother: 71 yrs, copd, diagnosed with See Notes. B angel1: alive, factor v leiden, diagnosed with See Notes, Stroke. S on(s): alive. 1 brother(s) . 1 son(s) - healthy. . + SD in dad no DM or Dementia Melanoma, mat gma. N o breast, colon, uterine or ovarian. * Social History: S moking Status Patient is a never smoker A lcohol Use Patient: u ses alcohol rarely S ocial Determinants of Health (SDoH) 1) Are you worried or concerned that in the next two months you may not have stable housing that you own, rent, or stay in as part of a household? N o 2) Within the past 12 months, you worried about your food would run out before you got money to buy more? N ever true 3) Do you put off or neglect going to the doctor because of distance or transportation? N o 4) In the past 12 months has the [employer], gas, oil, or water Weavly threatened to shut of service to your home? N o 5) How often does anyone, including family members, cause you physical harm? N ever (1) 6) How often does anyone, including family, insult you or talk down to you? N ever (1) 7) How often does anyone, including family, threaten you with harm? N ever (1) 8) How often does anyone, including family, scream or curse at you? N ever (1) 9) Would you like help with any of these needs? N o Date Performed 0 08/30/2024 Personal Safety SCORING: Points are in ( ) beside each response for questions 5- 8. A sum of >9 for is positive; 9 or less is negative 4 C affeine: daily, daily, daily, daily. E xercise: walking, gardening, walking, gardening, walking, gardening, walking, gardening. 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 D rug Use Patient/Family reports: N o illicit drug use R eligion: none, raised Temple, none, raised Temple, none, raised Temple, none, raised Temple. M arital Status: , , , . C alejandro: Son, 21 yrs, lives at home (01/22), Son, 21 yrs, lives at home (01/22), Son, 21 yrs, lives at home (01/22), Son, 21 yrs, lives at home (01/22). * Medications: T akingAmbien 10 MG Tablet 1 tab Orally qHS CeleBREX 200 MG Capsule 1 capsule Orally Once a day Climara 0.025 MG/24HR Patch Weekly 1 patch to skin Transdermal weekly Compression Stockings Knee High 30-40 knee high as directed Diflucan 150 MG Tablet 1 tablet Orally q 3 wks to prevent yeast infection Iron 325 (65 Fe) MG Tablet 1 tablet Orally Once a day Lantus SoloStar 100 UNIT/ML Solution Pen-injector 22 units Subcutaneous every qhs , Notes to Pharmacist: 17 units at nightLyumjev KwikPen 100 UNIT/ML Solution Pen-injector as directed Subcutaneous , Notes to Pharmacist: 1 Unit per 4 G Carbs SlidingmetFORMIN HCl 500 MG Tablet 2 tablets with meals Orally Twice a day Mounvalente , Notes to Pharmacist: 15 mg wklyProbiotic OTC Capsule as directed Orally as directed Prometrium 100 MG Capsule 1 capsule Orally Once a day Vascepa 1 GM Capsule 2 capsules with meals Orally Twice a day Vitamin D3 2000 UNIT Capsule as directed Orally as directed Vytorin 10-40 MG Tablet 1 tablet Orally Once a day Xarelto 20 MG Tablet 1 tablet WITH FOOD Orally Once a day Taking Ambien 10 MG Tablet 1 tab Orally qHS Taking CeleBREX 200 MG Capsule 1 capsule Orally Once a day Taking Climara 0.025 MG/24HR Patch Weekly 1 patch to skin Transdermal weekly Taking Compression Stockings Knee High 30-40 knee high as directed Taking Diflucan 150 MG Tablet 1 tablet Orally q 3 wks to prevent yeast infection Taking Iron 325 (65 Fe) MG Tablet 1 tablet Orally Once a day Taking Lantus SoloStar 100 UNIT/ML Solution Pen-injector 22 units Subcutaneous every qhs , Notes to Pharmacist: 17 units at nightTaking Lyumjev KwikPen 100 UNIT/ML Solution Pen-injector as directed Subcutaneous , Notes to Pharmacist: 1 Unit per 4 G Carbs SlidingTaking metFORMIN HCl 500 MG Tablet 2 tablets with meals Orally Twice a day Taking Mounjaro , Notes to Pharmacist: 15 mg wklyTaking Probiotic OTC Capsule as directed Orally as directed Taking Prometrium 100 MG Capsule 1 capsule Orally Once a day Taking Vascepa 1 GM Capsule 2 capsules with meals Orally Twice a day Taking Vitamin D3 2000 UNIT Capsule as directed Orally as directed Taking Vytorin 10-40 MG Tablet 1 tablet Orally Once a day Taking Xarelto 20 MG Tablet 1 tablet WITH FOOD Orally Once a day Not-TakingVascepa 1 GM Capsule 2 capsules with meals Orally Twice a day , stop date 08/30/2024Medication List reviewed and reconciled with the patientNot-Taking Vascepa 1 GM Capsule 2 capsules with meals Orally Twice a day , stop date 08/30/2024Medication List reviewed and reconciled with the patient * Allergies: N .K.D.A.no[Allergies Verified] Objective: * Vitals: W t:168.2lbs, Ht: 67 in, BMI:26.34Index, BP:110/64mm Hg, HR:72/min, RR:16/min, Oxygen Sat:98%. Waist 38 inches on 08/30/24. * Examination: G eneral Examination: GENERAL i n no acute distress, well developed, well nourished. EYES: s clera non-icteric, no significant injection, PERRL.? ORAL CAVITY: m ucosa moist, no lesions. SKIN: n o suspicious lesions of face, arms, torso. RESPIRATORY: CBTA, no retractions, no wheezing, nml RR without increased work of breathing. CARDIOVASCULAR: r egular rate and rhythm, 4/6 systolic murmur loudest RUSB but also LUSB, no rubs, gallops; signif varicosities of LLE and foot. ABDOMEN: soft, nontender, nondistended, bowel sounds present. PSYCH: alert, oriented, cognitive function intact, normal mood and affect. Assessment: * Assessment: 1. E ncounter for general adult medical examination with abnormal findings - Z00.01 (Primary)? 2. C hronic insomnia - F51.04 3 . B dipti mass index (BMI) of 26.0 to 26.9 in adult - Z68.26 4 . D ietary counseling and surveillance - Z71.3 5. A trial fibrillation, unspecified type - I48.91 6 . A symptomatic varicose veins - I83.90 7 . C hronic anticoagulation - Z79.01 ? 8 . S creening mammogram for breast cancer - Z12.31 Plan: * Treatment: 2. O thers Refill Xarelto Tablet, 20 MG, 1 tablet WITH FOOD, Orally, Once a day, 90 days, 90, Refills 3; S top Diflucan Tablet, 150 MG, 1 tablet, Orally, q 3 wks to prevent yeast infection. * Procedure Codes: 3 008F BODY MASS INDEX [id number] Scrning perf and [id number] BRIEF EMOTIONAL/BEHAV ASSMT * Preventive Medicine: Counseling: B SD Management Above Normal BMI Follow-up L ifestyle education regarding diet S moking: Patient is a NON Smoker 0 08/30/2024 C olon in 2023 You need new LINING FOLDER, or I could do LINING FOLDER exams here See if you can use 1/2 Ambien with the wt loss, and resume Melatonin. * Follow Up: 6 mo, Chronic insomnia (lesser Ambien?), Xarelto, get body fat * * R MECHANIC Sign off status: Completed true * Provider: Cristal Lemus MD Date: 0 08/30/2024 Generated for Afua banegas/Robbie/Gómezitting on: 0 02/18/2025 12:48 PM CDT History and Physical Notes * HPI (History of Present Illness) Category Sub-Category Detail Notes Category Not es Migrated HPI First Point of Contact Screening: Do any of these apply to you? (USE BEGINING 05/2022) -> 1. New Rash or open sores No, 2. Fever and/or chills in the past 7 days No, 3. Cough No, 4. Muscle or body aches (other than from an injury) No, 5. Sore throat No, 6. In the past three weeks, have you or a close contact traveled outside the [place] and are you now ill? No Depression Screening: PHQ-2 (2015 Edition) -> Little interest or pleasure in doing things?: Not at all, Feeling down, depressed, or hopeless?: Not at all, Total Score: 0 New symptom(s) : Pt presents today for MALE physical. - Medical / social updates since last visit/Physical: 1) Losing much weight, likely from Mounjaro. Losing some strength in hands. 2) R TKA last year, doing OK, but not full ROM. Able to be much more active. 3) Afib, new onset, 12/24. Was about to have cardioversion, then self-converted. Hasn't recurred. 4) Off Jardiance now, and no yeast infections. 2. Chronic anticoag- needs me to assume Xarelto Rx with [facility]. Had been on Warfarin, but [facility] switched it last fall. Past medical/family/social history reviewed by Dr. Lemus and updated as necessary.. First Point of Contact Screening : Proper hand washing used. FPOC screen negative unless otherwise noted. Examination Category Sub-Category Detail Notes Category Not es Migrated Examinations General Examination: EYES: -> sclera non-icteric, no significant injection, PERRL ORAL CAVITY: -> mucosa moist, no lesions CARDIOVASCULAR: -> regular rate and rhythm, 4/6 systolic murmur loudest RUSB but also LUSB, no rubs, gallops; signif varicosities of LLE and foot ABDOMEN: -> soft, nontender, nondistended, bowel sounds present PSYCH: -> alert, oriented, cognitive function intact, normal mood and affect GENERAL -> in no acute distress, well developed, well nourished SKIN: -> no suspicious lesions of face, arms, torso RESPIRATORY: -> CBTA, no retractions, no wheezing, nml RR without increased work of breathing
--- OUTSIDE RECORDS SUMMARY | 2025-02-18 12:48 | XMS_ITS | Patient Health Record ---
Author Organization [facility], [facility] Address [address] [address] Care Team Providers Care Lockstitch Topstitcher Name Role Phone Cayetano Ramesh Primary Care Provider Mackenzie Zaragoza Unavailable [phone] Allergies No Known Allergies Reason For Referral No Information Medications Medication SIG (Take, Route, Frequency, Duration) Notes Start Date End Date Status Prometrium 100 MG 1 capsule Orally Onc e a day for 90 days 03/27/2016 Active Probiotic OTC as directed Orally a s directed for 90 days Active Mounjaro 15 mg wkly Active metFORMIN HCl 500 MG 2 tablets with meal s Orally Twice a day for 30 day(s) Active Lyumjev KwikPen 100 UNIT/ML as directed Subcutaneous 1 Unit per 4 G Carbs Sliding Active Lantus SoloStar 100 UNIT/ML 22 units Subcutaneous every qhs 17 units at night Active Iron 325 (65 Fe) MG 1 tablet Orally Once a day Active Ambien 10 MG 1 tab Orally qHS for 90 days 08/15/2024 Active Xarelto 20 MG 1 tablet WITH FOOD Orally Once a day for 90 days 05/13/2024 Active Vytorin 10-40 MG 1 tablet Orally Once a day for 90 days 04/02/2012 Active Vitamin D3 2000 UNIT as directed Orally as directed for 90 days Active Vascepa 1 GM 2 capsules with meal s Orally Twice a day for 90 days 01/05/2024 Active Compression Stockings Knee High 30-40 knee high as directed 10/17/2015 Active Climara 0.025 MG/24HR 1 patch to skin Transdermal weekly for 90 days 04/25/2016 Active CeleBREX 200 MG 1 capsule Orally Onc e a day for 90 days 04/26/2012 Active Immunizations Vaccine Route Administration Date Status Comme nts COVID_19 (Pfizer-BioNTech) 16+yrs, NO PRES, 2 DOSE Unknown 10/31/2020 Administered COVID_19 (Pfizer-BioNTech) 16+yrs, NO PRES, 2 DOSE Unknown 11/28/2020 Administered COVID_19 (Pfizer-BioNTech) 16+yrs, NO PRES, 2 DOSE Unknown 08/11/2021 Administered Influenza Unknown 05/31/2010 Administered Influenza Unknown 07/01/2011 Administered Influenza Given Elsewhere Unknown 05/16/2020 Administered administered @ outside provider per pt recall Influenza Quad PF (3yrs+) 2016 .5ml syringes IM Intramuscular 06/11/2015 Administered Influenza Quad PF (3yrs+) 2015 .5ml syringes IM Intramuscular 06/24/2016 Administered Influenza Quad PF (6mos+) 2018 0.5ml syringes IM Intramuscular 05/04/2019 Administered Influenza Quad PF (Fluarix 6mo+) 2022 0.50 ml syringe IM Intramuscular 05/05/2023 Administered Pneumococcal (Akbutxreg21) PPSV23 (2yr+) IM Intramuscular 04/20/2018 Pending Pneumococcal 13 (PCV13) Conjugate Vaccine (Dyevfcn21) IM Intramuscular 06/13/2020 Administered Td (7yr+) IM Intramuscular 01/14/2022 Administered Tdap (Adacel or Boostrix) Unknown 11/03/2006 Administered Zoster ZOS (Shingrix) 50 yr+ IM Intramuscular 01/14/2022 Administered Zoster ZOS (Shingrix) 50 yr+ IM Intramuscular 07/07/2023 Administered Dilutent Lot #: [id number] Exp Date: 07/08/25 Social History Tobacco Use: Social History Observation Description Date Details (start date - stop date) Never Smoker NA - NA Smoking Status: Question Answer Notes Patient is a never smoker Problems Problem Type SNOMED Code ICD Code Onset Dates Problem Status W/U Status Risk Notes Problem 03483894 DARY (obstructive sleep apnea) (G47.33) Active confirmed Problem 463964991 Low back pain (M54.5) Active confirmed Problem 48961092 Sacroiliitis (M46.1) Active confirmed Problem 08518780 Menopausal symptoms (N95.1) Active confirmed Problem 604128022314234 Impingement syndrome of right shoulder (M75.41) Active confirmed Problem [facility] (current) use of anticoagulants (Z79.01) Active confirmed Problem Factor V Leiden mutation (337435239) Factor V Leiden mutation (D68.51) Active confirmed Problem 571221192 adjunct faculty for medical terminology curren t use of anticoagulant (Z79.01) Active confirmed Problem 01405392 Cardiac murmur (R01.1) Active confirmed Problem 56338901689012 LAE (left atrial enlargement) (I51.7) Active confirmed Problem 941529656 Activated 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) Active confirmed Problem 212099326 Hx of deep venou s thrombosis (Z86.718) Active confirmed Problem 82082294 Aortic valve sclerosis (I35.8) Active confirmed Problem 50517431 Type 2 diabetes mellitus with hyperglycemia (E11.65) Active confirmed Problem 242468712 Chronic insomnia (F51.04) Active confirmed Problem 19227951 Spondylosis of lumbar region without myelopathy or radiculopathy (M47.816) Active confirmed Problem 294027385 Other obesity (E66.8) Active confirmed Problem 777635330 penitentiary (current) use of insulin (Z79.4) Active confirmed Problem 10446885 Coronary artery disease involving yu[place]aviatam heart without angina pectoris, unspecified vessel or lesion type (I25.10) Active confirmed Problem 68691942 Primary hypercoagulable state (D68.59) Active confirmed Problem 91018849 Atrial fibrillation, unspecified type (I48.91) Active confirmed Problem 555568668 Osteoarthritis o f patellofemoral joints, 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) Active confirmed Problem 303996763 Pure hypercholesterolem ia, unspecified (E78.00) Active confirmed Problem 321172141 S/P rotator cuff repair (Z98.890) Active confirmed Vital Signs Respiratory Rate 16 /min 08/30/2024 Waist 38 in ches on 08/30/24 Oximetry 98 % 08/30/2024 Waist 38 inches on 08/30/24 Blood [...] 08/30/24 Encounters Encounter Location Date Provider Diagnosis [facility] [address] [place] [id number] 02/26/2024 Cayetano Ramesh [facility] [address] [place] [phone] 2024 Mackenzie Zaragoza adjunct faculty for medical terminology (current) use of anticoagulants Z79.01 [facility] [address] [place] [address] [id number] 08/29/2024 Cayetano Ramesh [facility] [address] [place] [address] [id number] 02/22/2024 Cayetano Ramesh [facility] [address] [place] [address] [id number] 02/24/2024 Cayetano Ramesh [facility] [address] [place] [id number] 02/26/2024 Cayetano Ramesh [facility] [address] [place] [address] [id number] 08/15/2024 Cayetano Ramesh Chronic insomnia F51 .04 [facility] [address] [place] [address] [id number] 08/28/2024 Cayetano Ramesh [facility] [address] [place] [id number] 08/30/2024 Cayetano Ramesh Encounter for genera l adult medical examination with abnormal findings Z00.01 ; Chronic insomnia F51.04 ; Body mass index (BMI) of 26.0 to 26.9 in adult Z68.26 ; Dietary counseling and surveillance Z71.3 ; Atrial fibrillation, unspecified type I48.91 ; Asymptomatic varicose veins I83.90 ; Chronic anticoagulation Z79.01 and Screening mammogram for breast cancer Z12.31 [facility] [address] [place] [phone] 04/13/2024 Mackenzie Zaragoza [facility] (current) use of anticoagulants Z79.01 ; History of DVT of lower extremity Z86.718 and Factor V Leiden mutation D68.51 [facility] [address] [place] [address] 05/04/2024 Mackenzie Zaragoza [facility] (current) use of anticoagulants Z79.01 ; History of DVT of lower extremity Z86.718 and Factor V Leiden mutation D68.51 [facility] [address] [place] [address] 2024 Mackenzie Zaragoza adjunct faculty for medical terminology (current) use of anticoagulants Z79.01 ; History of DVT of lower extremity Z86.718 and Factor V Leiden mutation D68.51 Assessments Encounter Date Diagnosis (ICD Code) Assessment Notes Treatment Notes Treatment Clinical Notes Section Notes 2024 adjunct faculty for medical terminology (current) use of anticoagulants (ICD-10 - Z79.01) 08/15/2024 Chronic insomnia (ICD-10 - F51.04) 08/30/2024 Encounter for general adult medical examination with abnormal findings (ICD-10 - Z00.01) 08/30/2024 Chronic insomnia (ICD-10 - F51.04) 04/13/2024 adjunct faculty for medical terminology (current) use of anticoagulants (ICD-10 - Z79.01) [...] schedules this procedure prior to next visit. 05/04/2024 adjunct faculty for medical terminology (current) use of anticoagulants (ICD-10 - Z79.01) [...] this procedure prior to next visit. 2024 adjunct faculty for medical terminology (current) use of anticoagulants (ICD-10 - Z79.01) [...] care for Carolynn for many years in [facility]. We have discussed if she decides [...] of lower extremity (ICD-10 - Z86.718) 05/04/2024 History of DVT of lower extremity (ICD-10 - Z86.718) 04/13/2024 History of DVT of lower extremity (ICD-10 - Z86.718) 08/30/2024 Body mass index (BMI) of 26.0 to 26.9 in adult (ICD-10 - Z68.26) 08/30/2024 Dietary counseling and surveillance (ICD-10 - Z71.3) 04/13/2024 Factor V Leiden mutation (ICD-10 - D68.51) 05/04/2024 Factor V Leiden mutation (ICD-10 - D68.51) 2024 Factor V Leiden mutation (ICD-10 - D68.51) 08/30/2024 Atrial fibrillation, unspecified type (ICD-10 - I48.91) 08/30/2024 Asymptomatic varicose veins (ICD-10 - I83.90) 08/30/2024 Chronic anticoagulation (ICD-10 - Z79.01) 08/30/2024 Screening mammogram for breast cancer (ICD-10 - Z12.31) 04/13/2024 Other Consistent Vitamin K Diet: Care Instructions material was published 05/04/2024 Other Consistent Vitamin K Diet: Care Instructions material was published 2024 Other Consistent Vitamin K Diet: Care Instructions material was published Plan Of Treatment Next Appt Details Provider Name:Cayetano brown, 02/21/2025 01:30:00 PM, [address] [place] [address], [phone], Insurance Providers Payer Name Payer Address Payer Phone Subscriber Number Group Number Insured Name Patient Relationship to Insured Coverage Start Date Coverage End Date [facility] [address] [phone] [id number] Kashmir Chavez Spouse - patient is the spouse of the insured Medications Administered Medication Instructions Date of Administration Dosage Notes Bupivacaine 0.5% 03/02/2020 3 mL Kenalog, per 10mg 03/17/2017 4 mg Right s akira Kenalog, per 10mg 11/11/2018 4 mL Kenalog-40 mg 03/02/2020 1 mL Medical (General) History Medical History History ICD Code CAD with CCS 678 in 09/24, nm l stress test, Echo with LVH, DD, AR with LAE, EF 60-65%. Dr Steele Syncope x1 , lightheaded episodes, Dr. Darin carbajal doing Holter, 11/22 Type II diabetes, Celine Sm ith is Endo at [facility], dx 2002. Had DKA in 2008 when ignoring DM. hyperlipidemia DVTs, Left leg, [facility], with varicos ities Heterozygous Factor V Leiden adjunct faculty for medical terminology current use of anticoagulant Arthritis of bilat knee, hea ding towards right TKA (fall 2022), Ortho at [facility] Obesity, lap band 2006, was around 400 Depression, started remotely , 2006, at time of lap band, in psych eval surgery. felt it helped her irritability during menopause. When off it, went back in anything could set me off. has ICT CUSTOMER SUPPORT OFFICER, Naila Kilpatrick Cardiac murmur, w/u with Dr Steele in 2021 , to monitor, per pt Chronic insomnia, initial in somnia, couldn't shut off brain, Ambien for years. No DARY testing or sleep doctor. Tried Melatonin formerly, but would wake up more tired or with HEDRICK. Atrial fibrillation, 12/23/23, converted on Cardizem Obesity, with 50# wt loss in 2022- wit h Mounjaro and lifestyle changes Surgical History Surgery Date(Month/Year) gall bladder 1987 tonsillectomy 1968 C section 01/2001 tubal ligation 01/2002 Lap band 12/2006 colonoscopy, [facility], Dr. Trejo, hemorr hoids, rpt 10 years 03/2016 Bilateral L3/4, L4/5, L5/S1 facet, Bilateral Sacroiliac Joint, Bilateral Gluteus Bursa injections performed by Dr. Sood 09/21/2017 R Rotator Cuff 07/12/2018 Bilateral L3/4, L4/5, L5/S1 facets joint, Right Sacroiliac Joint, Left Gluteus Bursa injections performed by Dr. Sood @[facility] 04/18/2020 Left wrist surgery - Tendonitis 1 Right TKA 09/2023 Hospitalization History Reason Date(Month/Year) Atrial fibrillation 12/23/2023 diabetic ketoacidosis 05/2009
--- OUTSIDE RECORDS SUMMARY | 2025-02-18 12:48 | XMS_ITS | Continuity of Care Document ---
Author Organization [facility]. If a dditional information is needed, contact Health Information Management at [phone] Address [address] [place] [address] Phone Care Team Providers Care Foundation Director Name Role Phone Unavailable Unavailable Unavailable Unavailable Unavailable Unavailable Unavailable Unavailable Unavailable Unavailable Unavailable Unavailable Problems I65.23 Onset:04-Feb-2022 Comments:Onset Date: 20220117 R55 Onset:04-Feb-2022 Comments:Onset Date: 20220117 I25.10(I25.10) Onset:28-Nov-2021 Comments:Onset Date: 20211125 Z68.35 Onset:28-Nov-2021 Comments:Onset Date: 20211125 I10(I10) Onset:28-Nov-2021 Comments:Onset Date: 20211125 E78.5(E78.5) Onset:14-Sep-2021 Comments:Onset Date: 20210910 E11.9 Onset:14-Sep-2021 Comments:Onset Date: 20210910 E66.9(E66.9) Onset:14-Sep-2021 Comments:Onset Date: 20210910 Z68.34 Onset:14-Sep-2021 Comments:Onset Date: 20210910 I11.9 Onset:14-Sep-2021 Comments:Onset Date: 20210910 I08.3(I08.3) Onset:14-Sep-2021 Comments:Onset Date: 20210910 Z82.49(Z82.49) Onset:14-Sep-2021 Comments:Onset Date: 20211125 Pure hypercholesterolemia Comments:Pure hypercholester olemia Coronary atherosclerosis Comments:Coronary artery dis ease involving [place] coronary artery of [place] heart, unspecified whether angina present Aortic stenosis, non-rheumat ic Comments:Nonrheumatic aortic valve stenosis Ventricular premature beats Comments:PVCs (premature vince tricular contractions) Syncope Comments:Syncope, unspecifie d syncope type Electrocardiogram abnormal Comments:Abnormal ECG Allergies and Adverse Reactions No Known Allergies(Allergy) Onset: 14-Apr-2022 Medications 5 ML regadenoson 0.08 MG/ML Prefilled Syringe [Lexiscan] Quantity:1 Cedric Parnell MD Start:06-May-2022 Status:Discontinued Metoprolol Tartrate 50 MG Or al Tablet [Lopressor];50 MG Orally Twice a day, 2 days prior to testing, take 1 tablet with food Quantity:5 TATUM HELLERDEN Start:01-Apr-2022 Status:Inactive Comments:50 MG Orally Twice a day, 2 days prior to testing, take 1 tablet with food 5 ML regadenoson 0.08 MG/ML Prefilled Syringe [Lexiscan] Quantity:1 Cedric Parnell MD Start:25-Nov-2021 Status:Discontinued Hydrocodone Bitartrate TATUM DAVE Status:Inactive Probiotic TATUM DAVE Amoxicillin-Pot Clavulanate TATUM DAVE Status:Inactive Compression Stockings TATUM DAVE Flexeril TATUM DAVE Status:Inactive Mounjaro;12.5 MG/0.5ML Subcutaneous Once a week, 12.5 MG/0.5ML TATUM DAVE Comments:12.5 MG/0.5ML Subcu taneous Once a week, 12.5 MG/0.5ML Trulicity;4.5 MG/0.5ML Subcutaneous as directed, as directed TATUM DAVE Status:Inactive Comments:4.5 MG/0.5ML Subcutaneous as directed, as directed Lyumjev;100 UNIT/ML Injectio n Daily, as directed TATUM DAVE Comments:100 UNIT/ML Injecti on Daily, as directed Zolpidem tartrate 10 MG Oral Tablet [Ambien];10 MG Orally Once a day, 1 tablet at bedtime as needed TATUM DAVE Comments:10 MG Orally Once a day, 1 tablet at bedtime as needed celecoxib 200 MG Oral Capsul e [CeleBREX];200 MG Orally Once a day, 1 capsule with food TATUM DAVE Comments:200 MG Orally Once a day, 1 capsule with food Fluconazole 150 MG Oral Tabl et [Diflucan];150 MG Orally Every other week, 1 tablet TATUM DAVE Comments:150 MG Orally Every other week, 1 tablet Insulin Glargine 100 UNT/ML Injectable Solution [Lantus];100 UNIT/ML Subcutaneous Every AM, 22 Units TATUM DAVE Comments:100 UNIT/ML Subcuta neous Every AM, 22 Units Warfarin Sodium 3 MG Oral Tablet;3 MG Orally Three times a day, 1 tablet TATUM DAVE Status:Inactive Comments:3 MG Orally Three times a day, 1 tablet Amoxicillin 500 MG Oral Capsule;500 MG Orally Twice a day, 1 capsule TATUM DAVE Status:Inactive Comments:500 MG Orally Twice a day, 1 capsule NovoLIN 70/30 FlexPen;(70-30 ) 100 UNIT/ML Subcutaneous At meals, 1-4 ratio TATUM DAVE Status:Inactive Comments:(70-30) 100 UNIT/ML Subcutaneous At meals, 1-4 ratio Bydureon BCise;2 MG/0.85ML Subcutaneous As direced, as directed TATUM DAVE Status:Inactive Comments:2 MG/0.85ML Subcutaneous As direced, as directed Escitalopram 10 MG Oral Tabl et [Lexapro];10 MG Orally Once a day, 1.5 tablet TATUM DAVE Status:Inactive Comments:10 MG Orally Once a day, 1.5 tablet Lisinopril 2.5 MG Oral Tablet;2.5 MG Orally Once a day, 1 tablet TATUM DAVE Status:Inactive Comments:2.5 MG Orally Once a day, 1 tablet empagliflozin 25 MG Oral Tablet [Jardiance];25 MG Orally Once a day, 1 tablet TATUM DAVE Status:Inactive Comments:25 MG Orally Once a day, 1 tablet Metformin HCl;500 MG Orally Twice a day, 1 tablet with a meal TATUM DAVE Comments:500 MG Orally Twice a day, 1 tablet with a meal Climara;0.025 MG/24HR Transdermal Weekly, 1 patch to skin TATUM DAVE Comments:0.025 MG/24HR Trans dermal Weekly, 1 patch to skin icosapent ethyl 1000 MG Oral Capsule [Vascepa];1 GM Orally Twice a day, 2 capsules with meals TATUM DAVE Comments:1 GM Orally Twice a day, 2 capsules with meals Vitamin D3;50 MCG (2000 UT) Orally Once a day, 1 capsule TATUM DAVE Comments:50 MCG (2000 UT) Or ally Once a day, 1 capsule ferrous sulfate 325 MG Oral Tablet;325 (65 Fe) MG Orally Once a day, 1 tablet TATUM DAVE Comments:325 (65 Fe) MG Oral ly Once a day, 1 tablet Prometrium;100 MG Orally Onc e a day, 1 capsule TATUM DAVE Comments:100 MG Orally Once a day, 1 capsule Vytorin;10-40 MG Orally Once a day, 1 tablet TATUM DAVE Comments:10-40 MG Orally Onc e a day, 1 tablet Social History Smoking Status Never smoked tobacco Vital Signs 04-May-2024 13:30 BMI25.63{index_val} BP [id number][Hg] BP [id number][Hg] Pulse74/min Nshcpl48ul Guhuem021.26cm Nbxqgy290.6lb Afroyj31.74kg Encounters Ambulatory Encounter Diagnosis:Paroxysmal atrial fibrillation,Heterozygous Factor V Leiden mutation 04-May-2024 13:[id number] 13:30 [id number] HEART RHYTHM Comments:Paroxysmal atrial fibrillation,Heterozygous factor V Leiden mutation
--- OUTSIDE RECORDS SUMMARY | 2025-02-18 12:48 | XMS_ITS | Encounter Summary ---
Author Organization [facility], later [facility] Address [address] [place], [place] [address] Care Team Providers Care Machine Filler Name Role Phone Cayetano Ramesh MD Primary Care Provider Katelyn Talamantes CLINICAL TEAM MANAGER Unavailable [phone] Source Comments Please be aware that You and/or your organization are solely responsible for the use, security, privacy, and any decisions made with any information you receive from [facility] Encounter Details Date Type Department Care Team (Late Contact Info) Description 01/28/2023 Refill [facility] Endocrinology at [address] [phone] Katelyn Talamantes, KATHY [address] [address] Social History Tobacco Use Types Packs/Day Years [...] Upcoming Encounters Date Type Department Care Team ([facility] Contact Info) Description 05/09/2025 1:30 PM CDT Office Visit [facility] Endocrinology at [place] [id number] [facility] [address] [place] [phone] Katelyn Talamantes APRN [address] [address] documented as of this encounter Visit Diagnoses Not on filedocumented in this encounter Care Teams Machine Filler Relationship Specialty Start [place] [address] [address] PCP - General Family Medicine 11/21/22 Katelyn Talamantes APRN [address] [address] Nurse Practitioner Endocrinology 11/22/24 documented as of this encounter
--- OUTSIDE RECORDS SUMMARY | 2025-02-18 12:48 | XMS_ITS | Encounter Summary ---
Author Organization [facility] Address [address] [place] [address] Care Team Providers Care Fiber Technician Name Role Phone Cayetano Ramesh MD Primary Care Provider Katelyn Talamantes OUTPATIENT CASE MANAGER Unavailable [phone] Source Comments Please be aware that You and/or your organization are solely responsible for the use, security, privacy, and any decisions made with any information you receive from [employer] Encounter Details Date Type Department Care Team (Late Contact Info) Description 02/13/2023 [facility] Health Information Management [address] [place] [phone] Provider, Not In System Social History [...] Description 05/09/2025 1:30 PM CDT Office Visit [facility] Endocrinology at [facility] [address] [place] [phone] Katelyn Talamantes, OUTPATIENT CASE MANAGER [address] [address] documented as of this encounter Visit Diagnoses Not on filedocumented in this encounter Care Teams Fiber Technician Relationship Specialty Start [place] [address] [address] PCP - General Family Medicine 11/21/22 Katelyn Talamantes APRN 7450 [facility] [address] [place] [address] Nurse Practitioner Endocrinology 11/22/24 documented as of this encounter
--- OUTSIDE RECORDS SUMMARY | 2025-02-18 12:48 | XMS_ITS ---
Author Organization [facility] Address [address] [place] [address] Care Team Providers Care Catalyst Recovery Operator Name Role Phone Cayetano Ramesh Primary Care Provider [phone] Allergies No Known Allergies REASON FOR VISIT Physical, ambien refill Medications Medication SIG (Take, Route, Frequency, Duration) Notes Start Date End Date Status Vascepa 1 GM 2 capsules with meals Orally Twice a day 08/30/2024 Not-Taking Ambien 10 MG 1 tab Orally qHS for 90 days 08/15/2024 Active Xarelto 20 MG 1 tablet WITH FOOD Orally Once a day for 90 days 05/13/2024 Active Vytorin 10-40 MG 1 tablet Orally Once a day for 90 days 04/02/2012 Active Vitamin D3 2000 UNIT as directed Orally as directed for 90 days Active Prometrium 100 MG 1 capsule Orally Once a day for 90 days 03/27/2016 Active Probiotic OTC as directed Orally as directed for 90 days Active Mounjaro 15 mg wkly Active metFORMIN HCl 500 MG 2 tablets with meals Orally Twice a day for 30 day(s) Active Vascepa 1 GM 2 capsules with meals Orally Twice a day for 90 days 01/05/2024 Active Lyumjev KwikPen 100 UNIT/ML as directed Subcutaneous 1 Unit per 4 G Carbs Sliding Active Lantus SoloStar 100 UNIT/ML 22 units Subcutaneous every qhs 17 units at night Active Iron 325 (65 Fe) MG 1 tablet Orally Once a day Active Compression Stockings Knee High 30-40 knee high as directed 10/17/2015 Active Climara 0.025 MG/24HR 1 patch to skin Transdermal weekly for 90 days 04/25/2016 Active CeleBREX 200 MG 1 capsule Orally Once a day for 90 days 04/26/2012 Active Social History Tobacco Use: Social History Observation Description Date Details (start date - stop date) Never Smoker NA - NA Smoking Status: Question Answer Notes Patient is a never smoker Vital Signs Weight 168.2 lbs 08/30/2024 Height 67 in 08/30/2024 BMI 26.34 kg/m2 08/30/2024 Blood pressure systolic 110 mm Hg 08/30/19 Blood pressure diastolic 64 mm Hg 025 Respiratory Rate 16 /min 08/30/2024 Oximetry 98 % 08/30/2024 Waist 38 inches on 08/30/24 Encounters Encounter Location Date Provider Diagnosis [facility] [address] [place] [phone] 08/30/2024 Cayetano Ramesh Encounter for genera l [...] Notes Treatment Clinical Notes Section Notes 08/30/2024 Encounter for general adult medical examination with abnormal findings (ICD-10 - Z00.01) 08/30/2024 Chronic insomnia (ICD-10 - F51.04) 08/30/2024 Body mass index (BMI) of 26.0 [...] Ambien?), Xarelto, get body fat, Reason: Provider Name:Cayetano Ryder off, 02/21/2025 01:30:00 PM, [address] [place] [address], [place], [place], [phone], Progress Notes * GLORIACarolynn LDOB:1965 (59 yo F)Acc No.[id number]:08/30/2024 PROGRESS NOTES Patient: Carolynn SCHOFIELD Provider: Cristal Ramesh MD :1965 A ge:59 Y S ex:Female Date:08/30/2024 Address:[address] [place], [place] [id number] Subjective: * Chief Complaints: * P hysical, [...] [place] and are you now ill? N o [...] fall. Past medical/family/social history reviewed by Dr. Ramesh and updated as necessary.. * ROS: R espiratory: Dyspnea d enies, denies. C ardiovascular: Chest pain d enies, denies. G astrointestinal: Constipation d enies, denies. D iarrhea d enies, denies. R ectal bleeding d enies, denies. S kin: Skin lesion(s) d enies, denies. P sychiatric: Depressed mood d enies, denies. * Medical History: * Quantity Surveyor History: L ast mammogram date , normal. * Surgical History: g all bladder 1988tonsillectomy 1968C section 01/2001tubal ligation 01/2002Lap band 12/2006colonoscopy, [facility], Dr. Trejo, hemorrhoids, rpt 10 years 03/2016Bilateral L3/4, L4/5, L5/S1 facet, Bilateral Sacroiliac Joint, Bilateral Gluteus Bursa injections performed by Dr. Sood 09/21/2017R Rotator Cuff 07/12/2018Bilateral L3/4, L4/5, L5/S1 facets joint, Right Sacroiliac Joint, Left Gluteus Bursa injections performed by Dr. Sood @[facility] 04/18/2020Left wrist surgery - Tendonitis 1Right TKA 09/2023 * Hospitalization/Major Diagno stic Procedure: d iabetic ketoacidosis trial fibrillation 12/23/2023 * Family History: F ather: 71 yrs, of heart related issues at age 71, diagnosed with See Notes.?Mother: 71 yrs, copd, diagnosed with See Notes. B rother1: alive, factor v leiden, diagnosed with See Notes, Stroke. S on(s): alive. 1 brother(s) . 1 son(s) - healthy. . + ME in dad no DM or Dementia Melanoma, [...] In the past 12 months has the [employer], gas, oil, or water [employer] threatened to shut of service to your [...] gardening, walking, gardening. 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 D rug Use Patient/Family reports: N o illicit drug use R eligion: none, raised Jainism, none, raised Jainism, none, raised Jainism, none, raised Jainism. M arital Status: , , , . [...] tablets with meals Orally Twice a day Mounjaro , Notes to Pharmacist: 15 mg wklyProbiotic [...] Procedure Codes: 3 008F BODY MASS INDEX [id number] Scrning perf and [id number] BRIEF EMOTIONAL/BEHAV ASSMT * Preventive Medicine: Counseling: B ME Management Above Normal BMI Follow-up L ifestyle education regarding diet S moking: Patient is a NON Smoker 0 08/30/2024 C olon in 2023 You need new MEDICARE COMPLIANCE AUDITOR, or I could do MEDICARE COMPLIANCE AUDITOR exams here See if you can use 1/2 Ambien with the wt loss, and resume Melatonin. * Follow Up: 6 mo, Chronic insomnia (lesser Ambien?), Xarelto, get body fat * * OMER RELATIONS SPECIALIST Sign off status: Completed true * Provider: Cristal Ramesh MD Date: 0 08/30/2024 Generated for Afua banegas/Robbie/Gómezitting on: 0 02/18/2025 12:48 PM CDT History and Physical Notes * HPI (History of Present Illness) Category Sub-Category Detail Notes Category Not es New symptom(s) Pt presents today for MALE physical. - [...] but Mackenzie switched it last fall. Past medical/family/s ocial history reviewed by Dr. Ramesh and updated as necessary.. Depression Screening PHQ-2 (2015 Edition) Little interest or pleasure in doing things?: Not at all Feeling down, depressed, or hopeless?: N ot at all Total Score: 0 First Point of Contact Screening Do any of these apply to you? (USE BEGINING 05/2022) 1. New Rash or open sores: No Proper hand washing used. FPOC screen negative unless otherwise noted. 2. Fever and/or chills in the past 7 day s: No 3. Cough: No 4. Muscle or body aches (other than from an injury): No 5. Sore throat: No 6. In the past three weeks, have you or a close contact traveled outside the [facility] and are you now ill? : No Examination Category Sub-Category Detail Notes Category Not es General Examination GENERAL in no acute distress, well developed, well nourished EYES: sclera non-icteric, no significant injection, PERRL CARDIOVASCULAR: regular rate and rhy thm, 4/6 systolic murmur loudest RUSB but also LUSB, no rubs, gallops; signif varicosities of LLE and foot RESPIRATORY: CBTA, no retractions , no wheezing, nml RR without increased work of breathing ABDOMEN: soft, nontender, non distended, bowel sounds present SKIN: no suspicious lesion s of face, arms, torso PSYCH: alert, oriented, cog nitive function intact, normal mood and affect ORAL CAVITY: mucosa moist, no les ions
--- OUTSIDE RECORDS SUMMARY | 2025-02-18 12:48 | XMS_ITS ---
Author Organization [facility]. land acquisition manager [facility] Care Team Providers Care Plastic Card Grader Cardroom Name Role Phone TATUM ACOSTA Unavailable Unavailable TATUM ACOSTA Unavailable Unavailable JESSY PENALOZA Unavailable Unavailable JESSY PENALOZA Unavailable Unavailable Unavailable Unavailable Unavailable [place] LEMUS Unavailable Unavailable [place] LEMUS Unavailable Unavailable Encounters Encounter Date Encounter Type Encounter Diagnosis Care Provider Facility Start: 02-21-2025 13:30-0400 End: 02-21-2025 13:50-0400 Patient encounter procedure [place] LEMUS [facility] Start: 02-07-2025 14:150400 End: 02-07-2025 14:300400 Patient encounter procedure JESSY PENALOZA [facility] Start: 05-24-2024 14:000400 End: 05-24-2024 14:15-0400 Patient encounter procedure JESSY PENALOZA [facility] Start: 05-04-2024 13:30-0400 End: 05-04-2024 13:45-0400 Patient encounter procedure TATUM ACOSTA [facility] Additional Source Comments FOR RECORDS PERTAINING TO PATIENTS WHO ARE OR HAVE BEEN ENROLLED IN A CHEMICAL DEPENDENCY/SUBSTANCEABUSE PROGRAM, SOME INFORMATION MAY BE OMITTED. This clinical summary was aggregated from multiple sources. Caution should be exercised in using it in the provision of clinical care. This summary normalizes information from multiple sources, and as a consequence, information in this document may materially change the coding, format and clinical context of patient data. In addition, data may be omitted in some cases. CLINICAL DECISIONS SHOULD BE BASED ON THE PRIMARY CLINICAL RECORDS. [employer] provides no warranty or guarantee of the accuracy or completeness of information in this document.The following information is based on time limited clinical information
--- OUTSIDE RECORDS SUMMARY | 2025-02-18 12:48 | XMS_ITS | Patient Health Record ---
Author Organization [facility] Address [address] [place], [place] [id number] Care Team Providers Care Hedis Specialist Name Role Phone Jose G Maldonado Primary Care Provider Unavail able Tristian Rg Unavailable [phone] Reason For Referral No Information Medications Medication SIG (Take, Route, Frequency, Duration) Notes Start Date End Date Status Coumadin Active Ambien Active Levemir Active NovoLOG Active HYDROcodone-Acetaminophen 5-325 MG 1-2 tab(s) Orally every 6 hrs prn pain pc 11/16/2013 Active Vitamin D3 Super Strength 2000 UNIT as directed Orally Active metFORMIN HCl 1000 MG as directed Orally Active SymlinPen 120 1000 MCG/ML as directed Subcutaneous Active Tricor 48 MG 1 tablet Orally Once a day for 30 day(s) Active Vytorin Active Lexapro Active Problems Problem Type SNOMED Code ICD Code Onset Dates Problem Status W/U Status Risk Notes Problem Metatarsalgia (76731910) Metatarsalgia (726.70) Active confirmed Problem Foot ulcer (49617238) Ulcer of other part of foot (707.15) Active confirmed Problem Diabetes mellitus (81132751) Diabetes mellitus (250.00) Active confirmed Problem Verruca (64090940) Verruca (078.19) Active confirmed Plan Of Treatment No Information Insurance Providers Payer Name Payer Address Payer Phone Subscriber Number Group Number Insured Name Patient Relationship to Insured Coverage Start Date Coverage End Date [employer] [address] [place] [id number] [phone] [id number] Carolynn Chavez Self - patient is the insured Medical (General) History Medical History History ICD Code Circulatory Problems- DVT hx x 4 - Facto r V deficiency Diabetes Swelling in Ankles and Feet Tired Feet Varicose Veins Surgical History Surgery Date(Month/Year) Lap-Band Gallbladder Tonsillectomy C section Hospitalization History Reason Date(Month/Year) DVT
--- OUTSIDE RECORDS SUMMARY | 2025-02-18 12:48 | XMS_ITS | Clinical Summary ---
Author Organization [facility] Address [address] [place] [address] Care Team Providers Care Lozenge Maker Name Role Phone Cayetano Ramesh MD Primary Care Provider Katelyn Talamantes Geraldine WAREHOUSE OPERATIONS MANAGER Unavailable [phone] Allergies No known active allergies Medications estradiol (Climara) 0.0375 MG/24HR Place 1 patch (0.0375 mg total) on the skin 1 (one) time per week. Weekly on sundays 3 Active ezetimibe-simvasta tin (Vytorin) 10-40 MG tablet Take 1 tablet by mouth every night. 3 Active Vascepa 1 g capsule Take 2 capsules (2 g total) by mouth 1 (one) time each day. 3 Active FreeStyle lancets 2 Active progesterone (Prometrium) 100 MG capsule Take 1 capsule (100 mg total) by mouth every night. 3 Active zolpidem (Ambien) 10 MG tablet Take 1 tablet (10 mg total) by mouth every night. 3 Active glucagon 1 MG injectionIndicatio ns:Uncontrolled type 2 diabetes mellitus with hyperglycemia (HCC) Take 1 mg as needed by injection route for severe hypoglycemia. 2 kit 3 3 Active cholecalciferol 125 MCG (5000 UT) tabletIndications: Vitamin D Deficiency Take 1 tablet (125 mcg total) by mouth 1 (one) time each day. Active Saccharomyces boulardii (Probiotic) 250 MG capsule Take 250 mg by mouth every night. Active ferrous sulfate (Iron) 325 (65 Fe) MG tablet Take 1 tablet (325 mg total) by mouth 1 (one) time each day with breakfast. Active Multiple Vitamins-Minerals (HAIR SKIN AND NAILS FORMULA PO) Take 1 capsule by mouth in the morning and 1 capsule before bedtime. Active FREESTYLE LITE test stripIndications:C ontrolled type 2 diabetes mellitus with other specified complication, with long-term current use of insulin ([facility]) Use 3 strips every day 300 each 3 4 Active celecoxib (CeleBREX) 100 MG capsule Take 1 capsule (100 mg total) by mouth 1 (one) time each day. Active Lyumjev KwikPen 100 UNIT/ML solution pen-injector injection penIndications:Unc ontrolled type 2 diabetes mellitus with hyperglycemia ([facility]) Inject 1 unit for every 8g carbs TID AC plus correction. MDDI: 45 units 45 mL 3 4 Active metFORMIN (Glucophage) 500 MG tabletIndications: Uncontrolled type 2 diabetes mellitus with hyperglycemia ([facility]) Take 2 tablets (1,000 mg total) by mouth in the morning and 2 tablets (1,000 mg total) in the evening. Take with meals. 360 tablet 3 4 Active ondansetron ODT (Zofran-ODT) 4 MG disintegrating tablet 4 Active Xarelto 20 MG tablet 5 Active Tirzepatide 15 MG/0.5ML solution auto-injectorIndic ations:Type 2 diabetes mellitus with hyperglycemia, with long-term current use of insulin ([facility]) Inject 0.5 mL (15 mg total) under the skin 1 (one) time per week. 6 mL 3 5 Active insulin glargine (Lantus SoloStar) 100 UNIT/ML injection penIndications:Typ e 2 diabetes mellitus with hyperglycemia, with long-term current use of insulin ([facility]) INJECT 17 UNITS UNDER THE SKIN AT BEDTIME 30 mL 3 5 Active pen needle, diabetic (B-D UF III MINI PEN NEEDLES) 31G X 5 MM miscIndications:Ty pe 2 diabetes mellitus with hyperglycemia, with long-term current use of insulin ([facility]) USE WITH INSULIN FOUR TIMES A DAY 400 each 3 5 Active pen needle, diabetic (B-D UF III MINI PEN NEEDLES) 31G X 5 MM miscIndications:Ty pe 2 diabetes mellitus with hyperglycemia, with long-term current use of insulin (HCC) Use 4 needles every day 100 each 1 5 Active Active Problems Problem Noted Date Diagnosed Date Atrial fibrillation with rapid ventricular respo nse 12/23/2023 Overweight 12/08/2023 Hypoglycemia unawareness ass ociated with type 2 diabetes mellitus 12/17/2022 Long-term insulin use ([facility]/HCC) 12/17/2022 Mixed hyperlipidemia 12/17/2022 Type 2 diabetes mellitus wit h hyperglycemia, with long-term current use of insulin 12/17/2022 Resolved Problems Problem Noted Date Diagnosed Date Resolved Date Obesity (BMI 30-39.9) 12/17/20222023 Encounters Date Type Department Care Team Description 12/29/2024 Refill [facility] Endocrinology at [place] [phone] Katelyn Talamantes, KATHY Type 2 diabetes mellitus with hyperglycemia, with long-term current use of insulin ([facility]) (Primary Dx) 12/20/2024 1:30 PM CDT Office Visit [facility] Endocrinology at [place] [phone] Katelyn Talamantes, KATHY Type 2 diabetes mellitus with hyperglycemia, with long-term current use of insulin ([facility]) (Primary Dx); Mixed hyperlipidemia; Hypoglycemia unawareness associated with type 2 diabetes mellitus (HCC); Overweight 12/20/2024 Travel from Last 3 Months Immunizations Immunization Administration Dates Next Due Influenza, Split (INACTIVE 05/02/2010 HISTORICAL ONLY) 05/05/2009 Influenza, injectable, MDCK, preservative free, quadrivalent 05/16/2020 Influenza, injectable, quadrivalent, preservativ e free 05/05/2023,05/15/2021 Pneumococcal Polysaccharide PPV23 08/03/2008 Zoster, Unspecified (INACTIV E 05/29/2017 HISTORICAL ONLY) 05/04/2023 Family History Medical History Relation Name Comments Coronary artery disease Father Relation Name Status Comments Father Social History Tobacco Use Types Packs/Day Years Used Date Smoking Tobacco: Never Smokeless Tobacco: Never Tobacco Cessation:Counseling Given: Not Answered Alcohol Use Standard Drinks/Week Comments Yes 0 (1 standard drink = 0.6 oz pur e alcohol) Rare PHQ-2 Answer Date Recorded Patient Health Questionnaire-2 Score 0 12/17/2022 Comments No Sex and Gender Information Value Date Recorded Sex Assigned at Not on file Legal Sex Female 8:12 PM EST Gender Identity Not on file Sexual Orientation Not on file Last Filed Vital Signs Vital Sign Reading Time Taken Comments Blood Pressure 120/68 12/20/2024 1:24 PM CDT Pulse 72 12/20/2024 1:24 PM CDT Temperature 36.8 C (98.3 F) 12/23/2023 6:09 AM CDT Respiratory Rate 17 12/23/2023 2:15 PM CDT Oxygen Saturation 99% 12/23/2023 2:15 PM CDT Inhaled Oxygen Concentration - - Weight 73.9 kg (163 lb) 12/20/2024 1:24 PM CDT Height 170.2 cm (5' 7) 12/20/2024 1:24 PM CDT Body Mass Index 25.53 12/20/2024 1:24 PM CDT Plan of Treatment Upcoming Encounters Date Type Department Care Team (Late st Contact Info) Description 05/09/2025 1:30 PM CDT Office Visit [facility] Endocrinology at [facility] [address] [place] [phone] Katelyn Talamantes, KATHY [address] [place] [address] Health Maintenance Due Date Last Done Comments CT Colonography 1964 Cologuard 1964 Colonoscopy 1964 Colorectal Cancer Screening 1964 FIT 1964 FOBT 1964 HIV Screening 1964 Sigmoidoscopy 1964 MMR Vaccines (1 of 1 - Standard series) 1965 Annual Physical 11/10/1966 Obesity Intervention 1970 Diabetes: Foot Exam 1974 Diabetes: Retinopathy Screening 1974 DTaP/Tdap/Td Vaccines (1 - Tdap) 1983 Pap Smear 1985 Cervical Cancer Screening 1994 HPV/Cotest 1994 Pneumococcal Vaccine: 50+ Years (2 of 2 - PPSV23) 09/28/2008 08/03/2008 Mammogram 05/29/2017 05/29/2016 Zoster Vaccines (2 of 2) 09/01/2023 07/07/2023, 09/2022 Depression Screening 12/18/2023 12/17/2022 COVID-19 Vaccine ( season) 2024 08/11/2021, 11/28/2020, 10/31/2020 Respiratory Syncytial Virus (RSV) 60 years and older and/or patients (1 - Risk 60-74 years 1-dose series) 2024 Lipid Panel 11/03/2024 11/04/2023, 11/02, 05/20/2021, Additional history exists Diabetes: Urine Protein Screening 12/22/2024 12/23/2023, 11/04/2023, 09/08/2023, Additional history exists Diabetes: Hemoglobin A1C 03/22/2025 025, 08/16/2024, 04/12/2024, Additional history exists Influenza Vaccine (#1) 2025 3, 05/15/2021, 05/16/2020, Additional history exists HPV Vaccines Aged Out No longer eligi ble based on patient's age to complete this topic Hepatitis A Vaccines Aged Out No long er eligible based on patient's age to complete this topic Hepatitis B Vaccines Aged Out No long er eligible based on patient's age to complete this topic Meningococcal B Vaccine Aged Out No l onger eligible based on patient's age to complete this topic Meningococcal Vaccine Aged Out No maday melly eligible based on patient's age to complete this topic Respiratory Syncytial Virus (RSV) <20 months Aged Out No longer eligible based on patient's age to complete this topic Medical Devices Implanted Type Area Milk Processing Worker Device Identifier Shelf Expiration Date Model / Serial / Lot Lap Band Implants N/A: Stomach Cement Bn Palacos R 1x40 Hi Visc Sgl Dse - Sna - [id number] Implanted:Qty: 2 on 09/28/2023 by Donnell Oneil MD at [facility] Ortho Implants Right: Knee [employer] [id number] 03/02/2028 [id number] / NA / [id number] Component Tib R Stmd Cmntd Persona 5deg D - Sna - [id number] Implanted:Qty: 1 on 09/28/2023 by Donnell Oneil MD at [facility] Ortho Implants Right: Knee [employer] [id number] 08/08/2033 42-5320-0 67-02 / NA / [id number] Component Artcsurf P/S Persona Ve Fix R Fem 6-9 Tib Cd 11mm - Sna - [id number] Implanted:Qty: 1 on 09/28/2023 by Donnell Oneil MD at [facility] Ortho Implants Right: Knee [employer] [id number] 04/08/2028 42-5224-0 05-11 / NA / [id number] Component Fem R Cmntd P/S Persona 6 Std - Sna - [id number] Implanted:Qty: 1 on 09/28/2023 by Donnell Oneil MD at [facility] Ortho Implants Right: Knee [employer] [id number] 05/09/2033 42-5006-0 60-02 / NA / [id number] Component Pat Poly Cmntd Vivacit-E Persona 32x8.5mm - Sna - [id number] Implanted:Qty: 1 on 09/28/2023 by Donnell Oneil MD at [facility] Ortho Implants Right: Knee [employer] [id number] 04/29/2028 42-5402-0 00-32 / NA / [id number] Procedures Procedure Name Priority Date/Time Associated Diagnosis Comments POC HEMOGLOBIN A1C Routine 12/20/2024 1: 38 PM CDT Type 2 diabetes mellitus with hyperglycemia, with long-term current use of insulin (HCC) COMPREHENSIVE METABOLIC PANEL STAT 12/23/2023 6:26 AM CDT LIPID PANEL Routine 11/04/2023 8:40 AM CDT Uncontrolled type 2 diabetes mellitus with hyperglycemia (HCC) BI MAMMOGRAM SCREENING TOMOSYNTHESIS BILATERAL Routine 05/29/2016 4:36 PM CDT from Last 3 Months or Most Recently Relevant to Health Maintenance Results * (ABNORMAL) POC Hemoglobin A1C, manually resulted (12/20/2024 1:38 PM CDT) Pathologist [facility] POC Hemoglobin A1C 7.3 % Blood Capillary blood specimen / Unknown 12/20/2024 1:38 PM CDT Katelyn Talamantes WAREHOUSE OPERATIONS MANAGER POINT OF CARE TEST ENTER /EDIT ORDERABLES Final Result * (ABNORMAL) Comprehensive metabolic panel (12/23/2023 6:26 AM CDT) [facility] Sodium 141 136 - 145 mmol/L [facility] ANTI-SARS- COV-2_ROCH E DIAGNOSTIC S_EUA 12/23/2023 6:48 AM CDT [facility] Potassium 3.5 3.5 - 5.1 mmol/L ELECSYS ANTI-SARS- COV-2_ROCH E DIAGNOSTIC S_EUA 12/23/2023 6:48 AM CDT [facility] Chloride 104 98 - 107 mmol/L [facility] ANTI-SARS- COV-2_ROCH E DIAGNOSTIC S_EUA 12/23/2023 6:48 AM CDT [facility] Carbon Dioxide 20.0(L) 22.0 - 29.0 mmol/L [facility]LE[facility] ANTI-SARS- COV-2_ROCH E DIAGNOSTIC S_EUA 12/23/2023 6:48 AM CDT [facility] Anion Gap 17(H) 3 - 12 mmol/L [facility] ANTI-SARS- COV-2_ROCH E DIAGNOSTIC S_EUA 12/23/2023 6:48 AM CDT [facility] BUN 10.0 8.0 - 20.0 mg/dL [facility] ANTI-SARS- COV-2_ROCH E DIAGNOSTIC S_EUA 12/23/2023 6:48 AM CDT [facility] Creatinine 0.41 <=1.20 mg/dL E[facility] ANTI-SARS- COV-2_ROCH E DIAGNOSTIC S_EUA 12/23/2023 6:48 AM CDT [facility] BUN/Creatinine Ratio 24.4 ELE[facility]YS ANTI-SARS- COV-2_ROCH E DIAGNOSTIC S_EUA 12/23/2023 6:48 AM CDT [facility] Glucose 229(H) 70 - 100 mg/dL [facility] ANTI-SARS- COV-2_ROCH E DIAGNOSTIC S_EUA 12/23/2023 6:48 AM CDT [facility] Calcium 9.4 8.8 - 10.4 mg/dL [facility]LE[facility]YS ANTI-SARS- COV-2_ROCH E DIAGNOSTIC S_EUA 12/23/2023 6:48 AM CDT [facility] AST 24 0 - 40 U/L [facility] ANTI-SARS- COV-2_ROCH E DIAGNOSTIC S_EUA 12/23/2023 6:48 AM CDT [facility] ALT 22 0 - 33 U/L [facility] ANTI-SARS- COV-2_ROCH E DIAGNOSTIC S_EUA 12/23/2023 6:48 AM CDT [facility] Alkaline Phosphatase 72 40 - 130 U/L [facility] ANTI-SARS- COV-2_ROCH E DIAGNOSTIC S_EUA 12/23/2023 6:48 AM CDT [facility] Protein, Total 6.8 6.0 - 8.0 g/dL [facility]LE[facility]YS ANTI-SARS- COV-2_ROCH E DIAGNOSTIC S_EUA 12/23/2023 6:48 AM CDT [facility] Albumin 4.32 3.50 - 5.20 g/dL [facility] ANTI-SARS- COV-2_ROCH E DIAGNOSTIC S_EUA 12/23/2023 6:48 AM CDT [facility] Globulin 2.5 g/dL ELE[facility]YS ANTI-SARS- COV-2_ROCH E DIAGNOSTIC S_EUA 12/23/2023 6:48 AM CDT [facility] A/G Ratio 1.7 ELECSYS ANTI-SARS- COV-2_ROCH E DIAGNOSTIC S_EUA 12/23/2023 6:48 AM CDT [facility] Bilirubin, Total 0.54 <=1.20 mg/dL ELECSYS ANTI-SARS- COV-2_ROCH E DIAGNOSTIC S_EUA 12/23/2023 6:48 AM CDT [facility] Osmolality Calc 279 mosm/kg ELECSYS ANTI-SARS- COV-2_ROCH E DIAGNOSTIC S_EUA 12/23/2023 6:48 AM CDT [facility] eGFR 113.5 mL/min/{1 .73_m2} 12/23/2023 6:48 AM CDT [facility] Comment: GFR calculated based on CKD-EPI 2020 Creatinine Equation Age (Years) Average GFR 20-29 116 mL/min/1.73 m2 30-39 107 mL/min/1.73 m2 40-49 99 mL/min/1.73 m2 50-59 93 mL/min/1.73 m2 60-69 85 mL/min/1.73 m2 70+ 75 mL/min/1.73 m2 Acceptable GFR: >= 60 mL/min/1.73 m2 Chronic Kidney Disease: <60 mL/min/1.73 m2 Kidney Failure: <15 mL/min/1.73 m2 Blood Venous blood specimen / Unknown Venipuncture / Unknown 12/23/2023 6:26 AM CDT 12/23/2023 6:27 AM CDT us Bautista Holt DO LAB BLOOD ORDERABLES Final Re sult [facility] [address] [facility] [place] [address], * Lipid Panel (11/04/2023 8:40 AM CDT) Cholesterol, Total 148 100 - 199 mg/dL [facility] (RESULTS) ([facility]) Triglycerides 83 0 - 149 mg/dL [facility] ([facility] ([facility]) HDL Cholesterol 72 >39 mg/dL [facility] ([facility]) ([facility]) VLDL, Calculated 16 5 - 40 mg/dL [facility] ([facility]) ([facility]) LDL Cholesterol, Calc 60 0 - 99 mg/dL [facility] ([facility]) ([facility]) Blood Venous blood specimen / Unknown 11/04/2023 8:40 AM CDT 11/03/2023 11:00 PM CDT Narrative [facility] - 11/05/2023 5:08 AM CDT Performed at: 01 - [facility] [id number] Rn Care Transition: Bebo Suazo MD, Phone: [phone] us Katelyn Talamantes WAREHOUSE OPERATIONS MANAGER LAB BLOOD ORDERABLES Fin al Result Performing Organization Address City/State/RUST Co de Phone Number [facility] ([facility]) ([facility]) * BI Mammogram Screening W Tomosynthesis Bilateral (05/29/2016 4:36 PM CDT) Anatomical Region Laterality Modality Breast Bilateral Mammography 05/07/2016 2:40 PM CDT Narrative 05/30/2016 1:46 PM CDT BILATERAL DIGITAL 3-D TOMOSYNTHESIS SCREENING MAMMOGRAMS WITH COMPUTER AIDED DETECTION: May 29, 2016 CLINICAL HISTORY: Screening. COMPARISON: Outside study from November 20, 2006 TECHNIQUE: 3-D digital tomosynthesis mammography was performed in the CC and MLO views bilaterally. C-View planar reconstructions were created. FINDINGS: Breast Density: The breasts are almost entirely fatty. Masses: There are no dominant spiculated masses. Breast Architecture: There are no areas of architectural distortion. Calcifications: There are a few scattered stable benign-appearing calcifications. Axillae, skin, and nipples: There are no pathologic changes of the skin, nipples or axilla. IMPRESSION: 1. Stable benign appearing mammograms. BI-RADS: 2- Benign finding(s) RECOMMENDATION: Continued annual screening mammography is recommended. CAD: Computer-aided detection was utilized in the interpretation of the study. Our facilities are accredited by the [employer] mammography program. Dictating Remi Mcgregor Dictated 05/30/2016 13:44 Signing Remi Mcgregor Location [id number] Mammography Final Transcribed by: ZEHRA 05/30/16 13:46 Signed by: REMI LADD MD 05/30/16 13:46 Technologist: LONG Procedure Note Remi Ladd MD - 07/23/2022 BILATERAL DIGITAL 3-D TOMOSYNTHESIS SCREENING MAMMOGRAMS WITH COMPUTERAIDED DETECTION: May 29, 2016 CLINICAL HISTORY: Screening. COMPARISON: Outside study from November 20, 2006 TECHNIQUE: 3-D digital tomosynthesis mammography was performed in the CCand MLO views bilaterally. C-View planar reconstructions were created. FINDINGS: Breast Density: The breasts are almost entirely fatty. Masses: There are no dominant spiculated masses. Breast Architecture: There are no areas of architectural distortion. Calcifications: There are a few scattered stable benign-appearingcalcifications. Axillae, skin, and nipples: There are no pathologic changes of the skin,nipples or axilla. IMPRESSION: 1. Stable benign appearing mammograms. BI-RADS: 2- Benign finding(s) RECOMMENDATION: Continued annual screening mammography is recommended. CAD: Computer-aided detection was utilized in the interpretation of thestudy. Our facilities are accredited by the [employer] program. Dictating Remi Mcgregor Dictated 05/30/2016 13:44 Signing Remi Mcgregor Location [id number] Mammography Final Transcribed by: ZEHRA 05/30/1613:46 Signed by: REMI LADD MD 05/30/1613:46 Technologist: LONG Jose G Maldonado MD IMG BI PROCEDURES Final R esult from Last 3 Months or Most Recently Relevant to Health Maintenance Insurance Advance Directives * Full Code (Latest Code Status on File) Date Activated Date Inactivated Comments 12/23/2023 7:51 AM 12/23/2023 6:09 PM * Full Code Date Activated Date Inactivated Comments 12/23/2023 7:51 AM 12/23/2023 7:51 AM * Full Code Date Activated Date Inactivated Comments 09/28/2023 8:06 AM 09/28/2023 4:37 PM Care Teams Lozenge Maker Relationship Specialty [place] [id number] [address] PCP - General Family Medicine 11/21/22 Katelyn Talamantes APRN [address] [address] Nurse Practitioner Endocrinology 11/22/24
--- OUTSIDE RECORDS SUMMARY | 2025-02-18 12:48 | XMS_ITS | Clinical Summary ---
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
--- OUTSIDE RECORDS SUMMARY | 2025-02-18 12:48 | XMS_ITS | Encounter Summary ---
Author Organization [facility] Address [address] [place] [address] Care Team Providers Care Interventional Sale Consultant Name Role Phone Cayetano Ramesh MD Primary Care Provider Katelyn Talamantes CHAIN SAW OPERATOR Unavailable [phone] Source Comments Please be aware that You and/or your organization are solely responsible for the use, security, privacy, and any decisions made with any information you receive from [facility] Encounter Details Date Type Department Care Team (Late Contact Info) Description 08/18/2023 [facility] Health Information Management [address] [place] [phone] Provider, Not In System Social History [...] Description 05/09/2025 1:30 PM CDT Office Visit [facility] Endocrinology at [facility] [address] [place] [phone] Katelyn Talamantes, CHAIN SAW OPERATOR [address] [address] documented as of this encounter Visit Diagnoses Not on filedocumented in this encounter Care Teams Interventional Sale Consultant Relationship Specialty Start [place] [id number] [address] PCP - General Family Medicine 11/21/22 Katelyn Talamantes APRN [address] [facility] [address] [place] [address] Nurse Practitioner Endocrinology 11/22/24 documented as of this encounter
--- OUTSIDE RECORDS SUMMARY | 2025-02-18 12:48 | XMS_ITS | Continuity of Care Document ---
Author Name [facility] Organization [facility] Care Team Providers Care Die Hardener Name Role Phone [facility] Unavailable Unavailable Medications Combined list of outpatient medications from Department of Defense and Veterans Affairs facilities.Medications provided include 1) outpatient medications from the last 15 months, and 2) patient-reported medications. Medication Details Route Status Patient Instructions Prescription Expires Prescription Number Last Dispense Date Ordering Provider Order Date Order Qty Source CELECOXIB (celecoxib) , 200 MG, CAPSULE, ORAL, [facility], 500 ea. BOTTLE Active [id number] 4 2023 90 Pharmac y Data Transac tion Service Facilit y DILTIAZEM HCL (diltiazem HCl), 30 MG, TABLET, ORAL, [facility], 100 ea. BOTTLE Active [id number] 4 2023 30 Pharmac y Data Transac tion Service Facilit y ESTRADIOL (ESTRADIOL) , .025MG/24H, PATCH TDWK, TRANSDERM, MYLAN, 4 ea. BOX Active [id number] 2023 13 Pharmac y Data Transac tion Service Facilit y EZETIMIBE-S IMVASTATIN (ezetimibe/ simvastatin ), 10 MG-40MG, TABLET, ORAL, AVKARE, 1000 ea. BOTTLE Active [id number] 4 2023 90 Pharmac y Data Transac tion Service Facilit y FREESTYLE LITE TEST STRIP (blood sugar diagnostic) , STRIP, MISCELL, BASURTO DIABETES, 50 ea. BOX Active [id number] 4 2023 300 Pharmac y Data Transac tion Service Facilit y ICOSAPENT ETHYL (icosapent ethyl), 1 G, CAPSULE, ORAL, APOTEX DULCE, 120 ea. BOTTLE Active [id number] 2023 360 Pharmac y Data Transac tion Service Facilit y JARDIANCE (EMPAGLIFLO ZIN), 25 MG, TABLET, ORAL, BOEHRINGER ING., 30 ea. BOTTLE Cancele d [id number] : 2023 0 Pharmac y Data Transac tion Service Facilit y JARDIANCE (EMPAGLIFLO ZIN), 25 MG, TABLET, ORAL, BOEHRINGER ING., 30 ea. BOTTLE Active [id number] 4 2023 90 Pharmac y Data Transac tion Service Facilit y LANTUS SOLOSTAR (INSULIN GLARGINE, M.REC.ANLOG ), 100/ML (3), INSULN PEN, SUB-Q, SANOFI-AVEN TIS, 3 ml SYRINGE Active [id number] 2023 15 Pharmac y Data Transac tion Service Facilit y MOUNJARO (tirzepatid e), 12.5MG/0.5, PEN INJCTR, SUBCUT, VIET LELA & CO., .5 ml SYRINGE Active [id number] 4 2023 6 Pharmac y Data Transac tion Service Facilit y PROMETRIUM (progestero ne, micronized) , 100 MG, CAPSULE, ORAL, [facility], 30 ea. BOTTLE Active [id number] 4 2023 90 Pharmac y Data Transac tion Service Facilit y ZOLPIDEM TARTRATE (zolpidem tartrate), 10 MG, TABLET, ORAL, AVKARE, 1000 ea. BOTTLE Cancele d [id number] : 2023 0 Pharmac y Data Transac tion Service Facilit y ZOLPIDEM TARTRATE (zolpidem tartrate), 10 MG, TABLET, ORAL, AVKARE, 1000 ea. BOTTLE Active [id number] 4 2023 90 Pharmac y Data Transac tion Service Facilit y Immunizations Combined list of available immunizations from the Department of Defense and Veterans Affairs facilities. Immunization Series Date Given Administered By Site Reaction Lot Number CVX Code Drug Card Cutter Status Comments Source COVID-19, mRNA, LNP-S, PF, 30 mcg/0.3 mL dose 2021 CHEO AGUAYO () Not Given COVID-19, mRNA, LNP-S, PF, 30 mcg/0.3 mL dose DoD COVID-19, mRNA, LNP-S, PF, 30 mcg/0.3 mL dose 2020 [place]erg[place] (PFR) Not Given COVID-19, mRNA, LNP-S, PF, 30 mcg/0.3 mL dose DoD COVID-19, mRNA, LNP-S, PF, 30 mcg/0.3 mL dose 2020 SAIGEAn[place]ergia [place] (PFR) Not Given COVID-19, mRNA, LNP-S, PF, 30 mcg/0.3 mL dose DoD Social History Combined list of available smoking, tobacco, and other social history from Department of Defense and Veterans Affairs facilities. Social History Type Response Date Comment [facility] e This section is an empty social history section. DoD
[2025-02-18 12:53] LABS: INR 1.1; Partial Thromboplastin Time 26.8 Seconds (22.3-36.8); Prothrombin Time 14.0 Seconds (11.1-14.7)
[2025-02-18 12:58] LABS: Magnesium 1.4 mg/dL (1.6-2.3)
[2025-02-18 13:00] LABS: Alanine Aminotransferase 16 U/L (6-35); Albumin Level 4.2 g/dL (3.5-5.1); Alkaline Phosphatase 72 U/L (38-126); Anion Gap 12 mmol/L (4-12); Aspartate Amino Transferase 26 U/L (14-36); Bilirubin,Total 0.9 mg/dL (0.2-1.3); Blood Urea Nitrogen 10 mg/dL (7-17); Calcium 9.3 mg/dL (8.4-10.2); Carbon Dioxide 23 mmol/L (22-30); Chloride 102 mmol/L (98-107); Estimated CRCL calculation 113 ml/min; Estimated Glomerular Filt Rate > 60; Glucose 219 mg/dL (65-110); Potassium 3.5 mmol/L (3.4-5.0); Sodium 137 mmol/L (137-145); Total Protein 6.9 g/dL (6.3-8.2)
[2025-02-18 13:10] LABS: NT Pro B Type Natriuretic Pept 354 pg/mL (19.9-100); Troponin I < 0.012 ng/mL (0.000-0.034)
[2025-02-18 13:15] LABS: Thyroid Stimulating Hormone Reflex 0.266 uIU/mL (0.465-4.68)
[2025-02-18] MEDS: MAGNESIUM SULF 2 GM/WATER 50ML 2 GM/50 ML BAG IVPB (13:24)
--- NOTE | 2025-02-18 13:37 | PM.IMHP ---
H&P: HPI History of Present Illness Date/Time: 02/18/25 13:37 Chief Complaint: Dizziness, Palpitations Narrative: 59 y/o F with PMH of paroxysmal AFib, diabetes, factor 5 leiden disease on Xarelto, and DVT presents here with dizziness and palpitations. The patient presents here from home on 02/18 for further evaluation of lightheadedness, dizziness, and palpitations. She reports acute onset of symptoms at 10:30 a.m. Patient's smart watch also alerted her that her HR was elevated. She denied any associated chest pain, syncope, recent illness, diarrhea, nausea, or vomiting. She has a history of paroxysmal AFib on Xarelto. Her she reports her most recent episode her AFib was in December of 2023 which required cardioversion. She is not currently on a rate controlling medications such as Cardizem or Metoprolol. Patient follows with a elementary education tutor back in [place], has follow up in March. Initial VS at presentation: 97.6? F, HR 175, RR 16, 118/75, and 100% on RA. ED workup showed: No leukocytosis, no anemia, normal coags, glucose 219, magnesium 1.4, BNP within normal limits when adjusted for age, TSH 0.266. CXR showed no acute cardiopulmonary disease. EKG showed AFib with RVR, rate 163, moderate voltage criteria for LVH consider normal variant, anterior VA probably old, possible anterior septal VA probably old, moderate T-wave abnormality consider lateral ischemia. Review of Systems Review of Systems: All systems reviewed & are unremarkable except as noted in HPI and below [facility] Past Medical History Medical History Diabetes DVT (deep vein thrombosis) in Factor 5 Leiden mutation, heterozygous Paroxysmal A-fib Family History Family History (Updated 02/18/25 @ 15:29 by Leisa Hooker RN) Mother COPD (chronic obstructive pulmonary disease) Father Obesity Social History Social History Smoking status: Never smoker Second hand tobacco smoke exposure: No Alcohol intake: never Substance use: never Do You Feel Safe in your Home?: Yes Lack of Transportation: No Lack of Food: Never True Current Housing: I Have Housing Concerned About Future Housing: No Difficulty Paying Gas/Electric Bills: No Difficulty Paying for Meds: No Currently Unemployed: No Education: Associate Degree Difficulty w/ Childcare or Family Care: No Spiritual care concerns: No Meds Home Medications and Allergies Home Medications ?Medication ?Instructions ?Recorded ?Confirmed ?Type Bacillus coagulans 250 million 1 tablet PO ONCE 02/18/25 02/18/25 History cell chewable tablet (Digestive Advantage Probiotic Gummy) Bacillus coagulans-inulin 1 1 cap PO DAILY 02/18/25 02/18/25 History billion cell-250 mg capsule (Probiotic with Prebiotic) celecoxib 200 mg capsule 200 mg PO Q12H 02/18/25 02/18/25 History cholecalciferol (vitamin D3) 75 3,000 unit PO DAILY 02/18/25 02/18/25 History mcg (3,000 unit) tablet estradiol 0.025 mg/24 hr weekly 1 patch transdermal WEEKLY 02/18/25 02/18/25 History transdermal patch ezetimibe 10 mg-simvastatin 40 mg 1 tablet PO QPM 02/18/25 02/18/25 History tablet ferrous sulfate 325 mg (65 mg 325 mg PO DAILY 02/18/25 02/18/25 History iron) tablet (Feosol) fluconazole 150 mg tablet 150 mg PO PRN 02/18/25 02/18/25 History insulin glargine 100 unit/mL (3 17 unit subcut QPM 02/18/25 02/18/25 History mL) subcutaneous pen (Lantus Solostar U-100 Insulin) insulin lispro-aabc 100 unit/mL 1 sliding scale dose subcut .with 02/18/25 02/18/25 History subcutaneous pen (Lyumjev KwikPen meals U-100 Insulin) metformin 500 mg tablet 1,000 mg PO BID 02/18/25 02/18/25 History multivitamin with minerals 1 tablet PO DAILY 02/18/25 02/18/25 History (Hair,Skin and Nails tablet) omega 5-ofj-fqs-fish oil 1,000 mg 1 cap PO BID 02/18/25 02/18/25 History (120 mg-180 mg) capsule (Fish Oil) progesterone micronized 100 mg 100 mg PO QPM 02/18/25 02/18/25 History capsule (Prometrium) rivaroxaban 20 mg tablet (Xarelto) 20 mg PO Q24H 02/18/25 02/18/25 History tirzepatide 12.5 mg/0.5 mL 12.5 mg subcut WEEKLY 02/18/25 02/18/25 History subcutaneous pen injector (Mounjaro) zolpidem 10 mg tablet 10 mg PO QHS 02/18/25 02/18/25 History Allergies Allergy/AdvReac Type Severity Reaction Status Date / Time No Known Allergies Allergy Verified 02/18/25 15:18 Vital Signs Vital Signs - 24 hr 02/18/25 12:07 02/18/25 12:32 02/18/25 12:35 Temperature 97.6 F Pulse Rate 175 H 171 H 140 H Respiratory Rate 16 Blood Pressure 118/75 120/91 H Pulse Oximetry 100 02/18/25 12:45 02/18/25 13:15 Temperature Pulse Rate 138 H 126 H Respiratory Rate Blood Pressure 115/72 115/69 Pulse Oximetry Exam Const: General: comfortable and no acute distress Other: , female, nontoxic appearance HENMT: Face/Nose/Sinus: Normal nares present Mouth: Yes moist mucous membranes Eyes: General: appearance normal, both eyes and all related structures Sclera: sclerae normal Pupils: Equal, round and reactive pupils present EOM: EOMs intact bilaterally Resp: Effort & Inspection: normal respiratory effort Auscultation: clear to auscultation bilaterally Cardio: Rate: tachycardic Rhythm: abnormal rhythm Other: +murmur (known to patient) GI: Other: Abdomen soft, nondistended, nontender. Normoactive bowel sounds in all quadrants. Skin: General skin exam: normal color and no rashes or lesions noted Wounds: no wounds Neuro: Speech: normal speech Motor exam (neuro): 5/5 motor strength present throughout Sensory Exam: normal sensation Other: A&O x4 Extrem: General: normal to inspection Psych: Mental Status: mental status grossly normal Affect: normal affect Other: Good insight and judgment, pleasant H&P: Results Labs Labs: Short CBC 02/18/25 Range/Units 12:27 WBC 6.9 (4.5-10.0) K/mm3 Hgb 12.7 (12.0-15.0) g/dL Hct 39.5 (37.0-47.0) % Plt Count 175 (150-375) k/mm3 [facility] 02/18/25 12:27 Sodium 137 Potassium 3.5 Chloride 102 Carbon Dioxide 23 BUN 10 Creatinine 0.42 L Glucose 219 H Calcium 9.3 Cardiac Enzymes 02/18/25 Range/Units 12:27 Troponin I < 0.012 (0.000-0.034) ng/mL Liver Function 02/18/25 Range/Units 12:27 Total Bilirubin 0.9 (0.2-1.3) mg/dL AST 26 (14-36) U/L ALT 16 (6-35) U/L Alkaline Phosphatase 72 (38-126) U/L Albumin 4.2 (3.5-5.1) g/dL Assessment and Plan Assessment and plan (1) Atrial fibrillation with rapid ventricular response: Code(s): I48.91 - Unspecified atrial fibrillation Status: Acute Assessment and Plan: - history of paroxysmal AFib on Xarelto, continue anticoagulation - initial heart rate in the 170s, EKG confirmed AFib RVR with rate of 163. - started on diltiazem 10 mg IV x2 and 15 mg IV x1, now on diltiazem gtt at 15 mg/hr, improved to 100-120 - consider cardiology consultation if patient unable to convert, plan to start p.o. metoprolol 25 mg b.i.d. once rate controlled or converted. patient is established with a elementary education tutor in her home city. - TSH 0.266 with free T4 pending - admission to IMU for close telemetry monitoring (2) Hypomagnesemia: Code(s): E83.42 - Hypomagnesemia Status: Acute Assessment and Plan: - Mag 1.4 during intiial work up, initial repletion with Mag 2G IVPB in ED. recheck in AM. - monitor (3) Diabetes: Qualifiers: Diabetes mellitus type: type 2 Diabetes mellitus termite treater helper insulin use: with termite treater helper use Diabetes mellitus complication status: without complication Qualified Code(s): E11.9 - Type 2 diabetes mellitus without complications; Z79.4 - alf (current) use of insulin Code(s): E11.9 - Type 2 diabetes mellitus without complications Status: Chronic Assessment and Plan: - hypoglycemia protocol - POC blood glucose ACHS - home medication: Continue Lantus 17 units subQ. Hold home sliding scale, Mounjaro, and metformin. - correct regimen ordered - moderate dose TIDWM, based off BMI - A1C ordered Plan Diet: Heart healthy GI Prophylaxis: n/a DVT Prophylaxis: Xarelto IV fluids: 1L bolus in ED Lines/Tubes: Peripheral IV Code Status: Full code Quality VTE Prophylaxis VTE prophylaxis: pharmacologic ordered Hospitalist MIPS Advance Care Plan I have confirmed that the patient's Advanced Care Plan is present, code status is documented, or surrogate decision maker is listed in patient medical record.: Yes Medication Reconciliation I have utilized all available resources to obtain, update and review the patients current medications (includes all prescriptions, OTC, herbals, cannabis, and nutritional supplements).: Yes
[2025-02-18 13:45] LABS: Free T4 Free Thyroxine Reflex 1.79 ng/dL (0.78-2.19)
--- NOTE | 2025-02-18 16:04 | ADMGEN ---
This patient, Carolynn Chavez, was admitted to IMU Room 204-01. Patient/family oriented to hospital policies and general routines including ID bracelet, bed and alarms, visiting hours, pain management, procedures, bathroom and other care routines, personal items, smoking policy, room service/diet, and visiting hours. Information on how to activate the Rapid Response Team has been discussed. Patient/Family are encouraged to report perceived risks to care and to ask questions if they do not understand what they are told or what they should do. Patient to room and assisted from stretcher to bed. Patient is A&Ox4 and voiced no complaints or concerns at this time. Head to toe assessment completed and charted. Personal items in reach. Call light in reach. Bed low and locked. Call light in reach. Will continue to monitor. April Hooker RN
[2025-02-18 16:56] LABS: Total Triiodothyronine (T3) 0.90 NG/ML (0.82-1.58)
[2025-02-18] MEDS: RIVAROXABAN 20 MG TABLET PO (17:34)
[2025-02-18] MEDS: EZETIMIBE 10 MG TABLET PO (17:34)
[2025-02-18] MEDS: INSULIN GLARGINE (*BKC) 100 UNITS/ML 17 UNITS SUB-Q (17:34)
[2025-02-18] MEDS: SIMVASTATIN 20 MG TABLET 40 MG PO (17:35)
[2025-02-18] MEDS: OMEGA 3 POLYUNSAT FATTY ACIDS 1 GM CAP PO (17:35)
[2025-02-18] MEDS: CELECOXIB 200 MG CAPSULE PO (20:58)
[2025-02-18] MEDS: METOPROLOL TARTRATE 25 MG TABLET PO (20:58)
[2025-02-18] MEDS: ZOLPIDEM TARTRATE (*CRX) 5 MG TABLET 10 MG PO (20:59)
[2025-02-19] VITALS (12 sets, daily range): BP systolic 103–133; BP diastolic 57–69; PULSE 64–187; RESP 18–100; TEMP 36.6–36.8; O2SAT 99–100
[2025-02-19 04:08] LABS: Hematocrit 33.6 % (37.0-47.0); Hemoglobin 10.8 g/dL (12.0-15.0); Immature Granulocyte Percent A 0.4 % (0-0.5); Lymphocytes Absolute Auto 1.86 K/mm3 (0.9-3.2); Mean Corpuscular HGB Conc 32.1 g/dl (32-36); Mean Corpuscular Hemoglobin 27.5 pg (26-34); Mean Corpuscular Volume 85.5 fl (80-100); Nucleated Red Blood Cells Absolute Auto 0.000 K/mm3 (0.0-0.012); Nucleated Red Blood Cells Perc 0.0 % (0.0-0.2); Platelet Count Result 153 k/mm3 (150-375); Red Blood Count 3.93 M/mm3 (4.2-5.4); White Blood Count 4.9 K/mm3 (4.5-10.0)
[2025-02-19 04:16] LABS: Hemoglobin A1C 7.1 % (<5.7)
[2025-02-19 04:31] LABS: Alanine Aminotransferase 13 U/L (6-35); Albumin Level 3.4 g/dL (3.5-5.1); Alkaline Phosphatase 41 U/L (38-126); Anion Gap 5 mmol/L (4-12); Aspartate Amino Transferase 26 U/L (14-36); Bilirubin,Total 0.7 mg/dL (0.2-1.3); Blood Urea Nitrogen 7 mg/dL (7-17); Calcium 8.8 mg/dL (8.4-10.2); Carbon Dioxide 27 mmol/L (22-30); Chloride 106 mmol/L (98-107); Estimated CRCL calculation 116 ml/min; Estimated Glomerular Filt Rate > 60; Glucose 72 mg/dL (65-110); Magnesium 1.7 mg/dL (1.6-2.3); Potassium 3.4 mmol/L (3.4-5.0); Sodium 138 mmol/L (137-145); Total Protein 5.8 g/dL (6.3-8.2)
[2025-02-19] MEDS: CELECOXIB 200 MG CAPSULE PO (08:59)
[2025-02-19] MEDS: METOPROLOL TARTRATE 25 MG TABLET PO (08:59)
[2025-02-19] MEDS: OMEGA 3 POLYUNSAT FATTY ACIDS 1 GM CAP PO (08:59)
[2025-02-19] MEDS: THERAPEUTIC MULTIVITAMINS/MINERALS TAB (*BKC) 1 TABLET PO (08:59)
[2025-02-19] MEDS: FERROUS SULFATE 325 MG TABLET DR BY MOUTH (09:00)
[2025-02-19] MEDS: CHOLECALCIFEROL (VITAMIN D3) 25 MCG (1,000 UNITS) TABLET 75 MCG PO (09:00)
[2025-02-19] MEDS: ACIDOPHILUS/BULGARICUS CHEWABLE TABLET 1 TABLET BY MOUTH (09:00)
--- NOTE | 2025-02-19 14:49 | PM.DS ---
DS: Admitting Diagnosis Discharge Date 02/19/25 Admitting Diagnosis Dizziness, Palpitations DS: Discharge Diagnosis Discharge Diagnosis (1) Atrial fibrillation with rapid ventricular response: Code(s): I48.91 - Unspecified atrial fibrillation Status: Acute Assessment and Plan: - history of paroxysmal AFib on Xarelto, continue anticoagulation - initial heart rate in the 170s, EKG confirmed AFib RVR with rate of 163. - started on diltiazem 10 mg IV x2 and 15 mg IV x1, now on diltiazem gtt at 15 mg/hr, improved to 100-120 - consider cardiology consultation if patient unable to convert, plan to start p.o. metoprolol 25 mg b.i.d. once rate controlled or converted. patient is established with a tank truck operator in her home city. - TSH 0.266 with free T4 pending - admission to IMU for close telemetry monitoring (2) Hypomagnesemia: Code(s): E83.42 - Hypomagnesemia Status: Acute Assessment and Plan: - Mag 1.4 during intiial work up, initial repletion with Mag 2G IVPB in ED. recheck in AM. - monitor (3) Diabetes: Qualifiers: Diabetes mellitus type: type 2 Diabetes mellitus longterm insulin use: with intermediate manager use Diabetes mellitus complication status: without complication Qualified Code(s): E11.9 - Type 2 diabetes mellitus without complications; Z79.4 - terminologist (current) use of insulin Code(s): E11.9 - Type 2 diabetes mellitus without complications Status: Chronic Assessment and Plan: - hypoglycemia protocol - POC blood glucose ACHS - home medication: Continue Lantus 17 units subQ. Hold home sliding scale, Mounjaro, and metformin. - correct regimen ordered - moderate dose TIDWM, based off BMI - A1C ordered Plan Diet: Heart healthy GI Prophylaxis: n/a DVT Prophylaxis: Xarelto IV fluids: 1L bolus in ED Lines/Tubes: Peripheral IV Code Status: Full code DS: Summary Hospital Course Hospital Course: The patient presents here from home on 02/18 for further evaluation of lightheadedness, dizziness, and palpitations. She reports acute onset of symptoms at 10:30 a.m. Patient's smart watch also alerted her that her HR was elevated. She denied any associated chest pain, syncope, recent illness, diarrhea, nausea, or vomiting. She has a history of paroxysmal AFib on Xarelto. Her she reports her most recent episode her AFib was in December of 2023 which required cardioversion. She is not currently on a rate controlling medications such as Cardizem or Metoprolol. Patient follows with a tank truck operator back in [place], has follow up in March. patient was started on metoroplol tartrate 25mg BID and her HR has improved, patient has scheduled to see her tank truck operator, patient is stable, will discharge today. Time Spent with Patient Time attestation: Total time spent providing and/or coordinating discharge services: DS: Data Data Completed and Pending Labs on day of discharge: Labs from last 24 hours 02/19/25 02/19/25 02/19/25 11:19 07:37 03:40 WBC 4.9 RBC 3.93 L Hgb 10.8 L Hct 33.6 L MCV 85.5 MCH 27.5 MCHC 32.1 RDW 13.1 Plt Count 153 MPV 10.3 Immature Gran % (Auto) 0.4 Neut % (Auto) 46.9 Lymph % (Auto) 38.0 [place] % (Auto) 10.4 H Eos % (Auto) 3.7 Baso % (Auto) 0.6 Lymph # (Auto) 1.86 [place] # (Auto) 0.5 Eos # (Auto) 0.2 Baso # (Auto) 0.0 Abs Immat Gran (auto) 0.02 Absolute Neuts (auto) 2.3 Absolute Nucleated RBC 0.000 Nucleated RBC % 0.0 Sodium 138 Potassium 3.4 Chloride 106 Carbon Dioxide 27 Anion Gap 5 BUN 7 Creatinine 0.41 L Estim Creat Clear Calc 116 Estimated GFR > 60 Glucose 72 POC Capillary Glucose 249 H 116 H Hemoglobin A1c 7.1 H Calcium 8.8 Magnesium 1.7 Total Bilirubin 0.7 AST 26 ALT 13 Alkaline Phosphatase 41 Total Protein 5.8 L Albumin 3.4 L Total T3 02/18/25 02/18/25 02/18/25 20:52 16:18 12:27 WBC RBC Hgb Hct MCV MCH MCHC RDW Plt Count MPV Immature Gran % (Auto) Neut % (Auto) Lymph % (Auto) [place] % (Auto) Eos % (Auto) Baso % (Auto) Lymph # (Auto) [place] # (Auto) Eos # (Auto) Baso # (Auto) Abs Immat Gran (auto) Absolute Neuts (auto) Absolute Nucleated RBC Nucleated RBC % Sodium Potassium Chloride Carbon Dioxide Anion Gap BUN Creatinine Estim Creat Clear Calc Estimated GFR Glucose POC Capillary Glucose 147 H 202 H Hemoglobin A1c Calcium Magnesium Total Bilirubin AST ALT Alkaline Phosphatase Total Protein Albumin Total T3 0.90 Discharge Plan Discharge Attending physician on discharge: Salo Monique Consulting providers: Gris Guzman; Case Cintron; Kashmir Gaines Discharging Clinician: Nancy Arvizu Patient Disposition: Home Activity: as tolerated Diet: heart healthy Discharge Instructions: patient is schedule to see her primary care provider on 02/21/25 and scheduled to see her tank truck operator in 2 weeks, patient is instructed if any symptoms worsen to go to nearest ER. Patient Instructions: Antibiotic Form Patient Language: Amharic Stand Alone Forms: General Discharge Information Follow-up/Referrals: PHYSICIAN NOT ON STAFF,NONSTAFF [Non-Staff] - Discharge Medications: New ezetimibe [Zetia] 10 mg Tablet 10 mg PO QPM Qty: 30 0RF metoprolol tartrate 25 mg Tablet 25 mg PO Q12HR Qty: 60 0RF Continued celecoxib 200 mg capsule 200 mg PO Q12H estradiol 0.025 mg/24 hr patch weekly 1 patch transdermal WEEKLY fluconazole 150 mg tablet 150 mg PO PRN insulin glargine [Lantus Solostar U-100 Insulin] 100 unit/mL (3 mL) insulin pen 17 unit SUBCUT QPM metformin 500 mg tablet 1,000 mg PO BID progesterone micronized [Prometrium] 100 mg capsule 100 mg PO QPM Xarelto 20 mg tablet 20 mg PO Q24H Mounjaro 12.5 mg/0.5 mL pen injector 12.5 mg SUBCUT WEEKLY zolpidem 10 mg tablet 10 mg PO QHS Lyumjev KwikPen U-100 Insulin 100 unit/mL insulin pen 1 sliding scale dose SUBCUT .with meals ezetimibe-simvastatin 10-40 mg tablet 1 tablet PO QPM omega 3-utl-kye-fish oil [Fish Oil] 1,000 (120-180) mg capsule 1 cap PO BID Digestive Advantage Prob Gummy 250 million cell tablet,chewable 1 tablet PO ONCE cholecalciferol (vitamin D3) 75 mcg (3,000 unit) tablet 3,000 unit PO DAILY ferrous sulfate [Feosol] 325 mg (65 mg iron) tablet 325 mg PO DAILY Probiotic with Prebiotic 1 billion-250 cell-mg capsule 1 cap PO DAILY Hair,Skin and Nails Tablet 1 tablet PO DAILY Date of admission: 02/18/25 13:20 Primary Care Provider: Domitila,Cayetano Admitting Provider: Salo Monique Attending physician on admission: Nancy Arvizu Condition: Stable
== END 2025-02-19 15:17 | disposition home or self-care (01) ==
LOC: ANHED 13:30 → ANHIMU 02-19 14:47
PROVIDERS: Emergency Medicine; Student in an Organized Health Care Education/Training Program; Admitting Provider Internal Medicine; Emergency Provider Emergency Medicine; Visit Provider Family Medicine
DX: I48.0 Paroxysmal atrial fibrillation (principal); E83.42 Hypomagnesemia; E11.9 Type 2 diabetes mellitus without complications; Z79.4 Long term (current) use of insulin; D68.51 Activated protein C resistance; Z79.01 Long term (current) use of anticoagulants; Z86.718 Personal history of other venous thrombosis and embolism
CPT/HCPCS: 36415; 71045; 80053; 82948; 83036; 83735; 83880; 84439; 84443; 84480; 84484; 85025; 85610; 85730; 93005; 96365; 96366; 96368; 99285; A9270; G0378; J1163; J1815; J3475; J7120